=== PATIENT | female | born 1970 | race Caucasian/White ===

== ENCOUNTER 2021-11-22 10:47 | Emergency (ER) | payer MEDICARE, MEDICAID, SELFPAY ==
[2021-11-22 10:55] VITALS: BP 113/78; PULSE 114; RESP 20; TEMP 36; O2SAT 95; BMI 30.9
--- NOTE | 2021-11-22 11:22 | ED.GENADULT ---
HPI - General Adult General Time Seen by Provider: 11:23 Date Seen: 11/22/21 Chief complaint: Shortness of Breath/Dyspnea Stated complaint: Body/headache, trouble breathing Time Seen by Provider: 11/22/21 11:11 Source: patient Mode of arrival: wheelchair Limitations: no limitations History of Present Illness HPI narrative: Patient is a 51 year white female who lives at [facility], she has bipolar disorder and recently started respirdol all for her bipolar every other week injection. Staff reports since she started this she has felt more somnolent. At this time Dolores really has no other complaints she is not short of breath she, she denies chest pain, she denies any abdominal pain or leg or back pain. They deny falls or injuries. She presents with a staff person from [facility]. Apparently her Risperdal injection has been increased recently. Initial triage note says dyspnea and shortness of breath, but the patient denies this. Related Data Home Medications Medication Instructions Recorded Confirmed acetaminophen 500 mg tablet mg 11/22/21 aspirin 81 mg tablet,delayed mg 11/22/21 release atorvastatin 20 mg tablet mg 11/22/21 cetirizine 10 mg tablet mg 11/22/21 clonazepam 0.5 mg tablet mg 11/22/21 clonazepam 1 mg tablet mg 11/22/21 fluoxetine 20 mg capsule mg 11/22/21 gabapentin 100 mg capsule mg 11/22/21 gemfibrozil 600 mg tablet mg 11/22/21 ibuprofen 400 mg tablet mg 11/22/21 insulin aspart U-100 100 unit/mL subcut 11/22/21 (3 mL) subcutaneous pen (Novolog Flexpen U-100 Insulin aspart) insulin detemir U-100 100 unit/mL unit subcut 11/22/21 (3 mL) subcutaneous pen (Levemir FlexTouch U-100 Insulin) levothyroxine 88 mcg tablet mcg 11/22/21 lithium carbonate 450 mg mg PO 11/22/21 tablet,extended release metformin 1,000 mg tablet mg 11/22/21 risperidone microspheres 50 mg/2 mg IM 11/22/21 mL intramuscular susp,ext release (Risperdal Consta) sumatriptan succinate 50 mg tablet mg PO 11/22/21 valacyclovir 1 gram tablet mg 11/22/21 Allergies Allergy/AdvReac Type Severity Reaction Status Date / Time celery Allergy Severe Anaphylaxis Verified 11/22/21 11:05 erythromycin base Allergy Unknown Verified 11/22/21 11:05 hydromorphone [From Dilaudid] Allergy Unknown Verified 11/22/21 11:05 Macrolide Antibiotics Allergy Unknown Verified 11/22/21 11:05 nifedipine Allergy Unknown Verified 11/22/21 11:05 turkey Allergy Unknown Verified 11/22/21 11:05 Review of Systems Status of ROS: Reports: 10 or more systems reviewed and unremarkable except as noted in History and below [facility] Social History Smoking Status: Current every day smoker What tobacco products do you use: cigarettes Do you use any of these nicotine containing products: None Second hand tobacco smoke exposure: Yes How often do you have a drink containing alcohol: 2-3 times a week AUDIT-C Alcohol total score: 3 Non-prescribed substance use: denies use Exam Narrative: Exam Narrative: Objective: Vital signs unremarkable, O2 sat excellent Patient is somewhat sound somnolent but is able to sit up cooperate talks in even and nonlabored sentences, is alert orient x3 Neck is supple Chest is clear no rales or wheezing Heart rhythm rate rhythm without murmur Abdomen benign soft nontender no hepatomegaly Extremities are no edema neurologic nonfocal Peripheral perfusion is good Skin is warm and dry Const: Vital Signs, click to edit/add: Vital Signs - 24 hr 11/22/21 10:55 11/22/21 12:29 Temperature 96.8 F L 97.8 F Pulse Rate [Left P ulse Oximeter] 114 H 97 Respiratory Rate 20 15 Blood Pressure [Le ft Upper Arm] 113/78 91/66 Pulse Oximetry 95 92 Oxygen Delivery Me thod Room Air Room Air Course Vital Signs Vital signs: Initial Vital Signs Temperature 96.8 F L 11/22/21 10:55 Temperature Source Temporal Artery Scan 11/22/21 10:55 Pulse Rate 114 H 11/22/21 10:55 Pulse Rhythm 11/22/21 10:55 Respiratory Rate 20 11/22/21 10:55 Blood Pressure 113/78 11/22/21 10:55 Blood Pressure Mean 89 11/22/21 10:55 Blood Pressure Position Sitting 11/22/21 10:55 Pulse Oximetry 95 11/22/21 10:55 Oxygen Delivery Method 11/22/21 10:55 Vital Signs Temperature 96.8 F L 11/22/21 10:55 Pulse Rate 114 H 11/22/21 10:55 Respiratory Rate 20 11/22/21 10:55 Blood Pressure 113/78 11/22/21 10:55 Pulse Oximetry 95 11/22/21 10:55 Oxygen Delivery Method 11/22/21 10:55 Temperature 97.8 F 11/22/21 12:29 Pulse Rate 97 11/22/21 12:29 Respiratory Rate 15 11/22/21 12:29 Blood Pressure 91/66 11/22/21 12:29 Pulse Oximetry 92 11/22/21 12:29 Oxygen Delivery Method 11/22/21 12:29 Medical Decision Making MDM Narrative Medical decision making narrative: Patient has had an increased dose of her Risperdal, and she seems to be more somnolent since then. At this point I think we could hold the Risperdal, discussed with her primary care or psychiatrist, will check an EKG, troponin, electrolytes, CBC to make sure there is no metabolic abnormality occurring, she denies urinary symptoms, denies cough. Will also check a COVID test. Addendum: The patient's labs look fairly reassuring other than her creatinine is now elevated 2.6. It was normal last time was checked. I suspect she is mildly dehydrated, will give her a L of fluid, check urinalysis and a CRP. If this is normal in terms urinalysis thank you can let her go home with careful follow-up within the next couple of days to repeat her lab, push p.o. fluids, stop the Risperdal. Also I would hold her metformin while her creatinine is elevated. Continue to monitor blood sugars. Update Primary Care with a blood sugar update and repeat creatinine in 48 hours. I suspect the patient's creatinine is slightly elevated due to dehydration from her sedation from the Risperdal, but needs to push oral fluids hold the Risperdal and recheck creatinine in 48 hours Lab Data Labs: Lab Results 11/22/21 11/22/21 11/22/21 Range/Units 11:33 11:50 11:50 WBC 10.22 (4.50-11.00) K/uL RBC 3.19 L (4.00-5.20) m/uL Hgb 9.8 L (12.0-16.0) gm/dL Hct 29.5 L (33.0-51.0) % MCV 93 (80-100) fL MCH 31 (26-34) pg MCHC 33 (32-36) gm/dL RDW Coeff of [place] 13.2 (11.5-15.5) % Plt Count 193 (140-440) K/uL Neut % (Auto) 82.3 H (42.0-72.0) % Lymph % (Auto) 7.8 L (20-44) % [place] % (Auto) 8.5 (0.0-11.0) % Eos % (Auto) 0.5 (0.0-7.0) % Baso % (Auto) 0.2 (0.0-3.0) % Neut # (Auto) 8.40 H (1.7-7.0) K/uL Lymph # (Auto) 0.80 L (0.90-2.90) K/uL [place] # (Auto) 0.90 (0.00-0.90) K/UL Eos # (Auto) 0.05 (0.00-0.50) K/uL Baso # (Auto) 0.02 (0.00-0.30) K/uL Abs Immat Gran (auto) 0.07 (0.00-0.30) K/uL Sodium 134 L (135-149) mmol/L Potassium 4.2 (3.6-5.1) mmol/L Chloride 98 (96-114) mmol/L Carbon Dioxide 18 L (20-32) mmol/L BUN 42 H (7-30) mg/dL Creatinine 2.6 H (0.5-1.5) mg/dL Estimated Creat Clear 21.86 Estimated GFR 22 ml/min Glucose 168 H (60-115) mg/dL Lactate (0.5-1.9) mmol/L Calcium 8.9 (8.4-10.6) mg/dL Total Bilirubin 0.9 (0.1-1.5) mg/dL Direct Bilirubin 0.9 H (0.0-0.5) mg/dL AST 36 H (12-35) U/L ALT 23 (4-35) U/L Alkaline Phosphatase 110 (40-150) U/L C-Reactive Protein 51.0 H (0.5-1.0) mg/dL NT-Pro-B Natriuret Pep 401 H (0-125) PG/mL Total Protein 7.4 (6.0-8.3) g/dL Albumin 3.9 (3.3-5.0) g/dL Amylase 53 (18-89) U/L Urine Color (Yellow) Urine Appearance (Clear) Urine pH (5.0-8.5) Ur Specific [place] (1.000-1.030) Urine Protein (Negative) Urine Glucose (UA) (Negative) Urine Ketones (Negative) Urine Blood (Negative) Urine Nitrite (Negative) Urine Bilirubin (Negative) Urine Urobilinogen (0.2-1.0) Ur Leukocyte Esterase (Negative) Urine RBC (0-2) Urine WBC (0-5) Ur Squamous Epith Cells (None-Few) Amorphous Sediment (None) Urine Bacteria (None) Ethyl Alcohol < 0.01 L (0.01-0.03) % SARS-CoV-2 (PCR) Negative SARS-CoV-2 (Negative) POC Troponin I (0.01-0.04) ng/ml 11/22/21 11/22/21 11/22/21 Range/Units 11:50 11:56 14:19 WBC (4.50-11.00) K/uL RBC (4.00-5.20) m/uL Hgb (12.0-16.0) gm/dL Hct (33.0-51.0) % MCV (80-100) fL MCH (26-34) pg MCHC (32-36) gm/dL RDW Coeff of Norris (11.5-15.5) % Plt Count (140-440) K/uL Neut % (Auto) (42.0-72.0) % Lymph % (Auto) (20-44) % [place] % (Auto) (0.0-11.0) % Eos % (Auto) (0.0-7.0) % Baso % (Auto) (0.0-3.0) % Neut # (Auto) (1.7-7.0) K/uL Lymph # (Auto) (0.90-2.90) K/uL [place] # (Auto) (0.00-0.90) K/UL Eos # (Auto) (0.00-0.50) K/uL Baso # (Auto) (0.00-0.30) K/uL Abs Immat Gran (auto) (0.00-0.30) K/uL Sodium (135-149) mmol/L Potassium (3.6-5.1) mmol/L Chloride (96-114) mmol/L Carbon Dioxide (20-32) mmol/L BUN (7-30) mg/dL Creatinine (0.5-1.5) mg/dL Estimated Creat Clear Estimated GFR ml/min Glucose (60-115) mg/dL Lactate 2.6 H (0.5-1.9) mmol/L Calcium (8.4-10.6) mg/dL Total Bilirubin (0.1-1.5) mg/dL Direct Bilirubin (0.0-0.5) mg/dL AST (12-35) U/L ALT (4-35) U/L Alkaline Phosphatase (40-150) U/L C-Reactive Protein (0.5-1.0) mg/dL NT-Pro-B Natriuret Pep (0-125) PG/mL Total Protein (6.0-8.3) g/dL Albumin (3.3-5.0) g/dL Amylase (18-89) U/L Urine Color Yellow (Yellow) Urine Appearance Cloudy A (Clear) Urine pH 5.5 (5.0-8.5) Ur Specific [place] 1.020 (1.000-1.030) Urine Protein 3+ A (Negative) Urine Glucose (UA) Negative (Negative) Urine Ketones Negative (Negative) Urine Blood 3+ A (Negative) Urine Nitrite Positive A (Negative) Urine Bilirubin Negative (Negative) Urine Urobilinogen 0.2 (0.2-1.0) Ur Leukocyte Esterase 3+ A (Negative) Urine RBC 10-25 A (0-2) Urine WBC >100 A (0-5) Ur Squamous Epith Cells Few (None-Few) Amorphous Sediment Moderate A (None) Urine Bacteria Many A (None) Ethyl Alcohol (0.01-0.03) % SARS-CoV-2 (PCR) (Negative) POC Troponin I 0.01 (0.01-0.04) ng/ml Discharge Plan Discharge Clinical Impression: Medication reaction, Acute dehydration Patient Disposition: Home w/ Parent or Adult Condition: Stable Additional Instructions: Hold Risperdal at this time, update primary care and psychiatry in the next couple of days, light activity. Return as needed. Stop metformin for now, continue blood sugar checks, update Primary in 24-48 hours. Creatinine was slightly elevated and should hold metformin for now. I would recommend a follow-up creatinine in 2 days. Will call if any abnormality in the urinalysis, and recommend good fluid hydration. I suspect she has been slightly dehydrated causing her creatinine the elevate based on her Risperdal use and sedation. Activity Level: Light activity Discharge Diet: Diabetic and Heart Healthy (2 gm sodium, low fat) Prescriptions: No Action atorvastatin 20 mg tablet cetirizine 10 mg tablet valacyclovir 1 gram tablet clonazepam 0.5 mg tablet clonazepam 1 mg tablet sumatriptan succinate 50 mg tablet PO aspirin 81 mg tablet,delayed release (DR/EC) acetaminophen 500 mg tablet lithium carbonate 450 mg tablet extended release PO levothyroxine 88 mcg tablet gemfibrozil 600 mg tablet metformin 1,000 mg tablet ibuprofen 400 mg tablet gabapentin 100 mg capsule fluoxetine 20 mg capsule insulin aspart U-100 [Novolog Flexpen U-100 Insulin] 100 unit/mL (3 mL) insulin pen SUBCUT Risperdal Consta 50 mg/2 mL suspension,extended rel recon IM Levemir FlexTouch U-100 Insuln 100 unit/mL (3 mL) insulin pen SUBCUT Follow Up/Referrals: Andrea Abbott MD [Primary Care Provider] - Stand Alone Forms: [facility] Info Instructions
[2021-11-22 11:57] LABS: Basophils Absolute Auto 0.02 K/uL (0.00-0.30); Basophils Percent Auto 0.2 % (0.0-3.0); Eosinophils Absolute Auto 0.05 K/uL (0.00-0.50); Eosinophils Percent Auto 0.5 % (0.0-7.0); Hematocrit 29.5 % (33.0-51.0); Hemoglobin* 9.8 gm/dL (12.0-16.0); Immature Granulocytes Abs Auto 0.07 K/uL (0.00-0.30); Lymphocytes Percent Auto 7.8 % (20-44); Mean Corpuscular HGB Conc 33 gm/dL (32-36); Mean Corpuscular Hemoglobin 31 pg (26-34); Mean Corpuscular Volume 93 fL (80-100); Monocytes Percent Auto 8.5 % (0.0-11.0); Neutrophils Percent Auto 82.3 % (42.0-72.0); Platelet Count* 193 K/uL (140-440); RDW Coefficient of Variation % 13.2 % (11.5-15.5); Red Blood Count 3.19 m/uL (4.00-5.20); White Blood Count* 10.22 K/uL (4.50-11.00)
[2021-11-22 11:58] LABS: Lactate* 2.6 mmol/L (0.5-1.9)
[2021-11-22 11:59] LABS: Slide Review Reflex No
[2021-11-22 12:14] LABS: Troponin, Point-of-Care* 0.01 ng/ml (0.01-0.04)
[2021-11-22 12:18] LABS: Albumin* 3.9 g/dL (3.3-5.0); Chloride* 98 mmol/L (96-114); Potassium* 4.2 mmol/L (3.6-5.1); Sodium* 134 mmol/L (135-149)
[2021-11-22 12:20] LABS: Amylase* 53 U/L (18-89); Creatinine* 2.6 mg/dL (0.5-1.5); Est. Creatinine Clearance* 21.86; Estimated Glomerular Filt Rate 22 ml/min
[2021-11-22 12:21] LABS: Alkaline Phosphatase* 110 U/L (40-150); Aspartate Amino Transferase* 36 U/L (12-35); Bilirubin Direct* 0.9 mg/dL (0.0-0.5); Bilirubin Total* 0.9 mg/dL (0.1-1.5); Blood Urea Nitrogen* 42 mg/dL (7-30); Carbon Dioxide* 18 mmol/L (20-32); Total Protein* 7.4 g/dL (6.0-8.3)
[2021-11-22 12:22] LABS: Alanine Aminotransferase* 23 U/L (4-35); Calcium* 8.9 mg/dL (8.4-10.6); Glucose* 168 mg/dL (60-115)
[2021-11-22 12:24] LABS: Ethanol* < 0.01 % (0.01-0.03)
[2021-11-22 12:27] LABS: SARS PCR* Negative SARS-CoV-2 (Negative)
[2021-11-22 12:29] VITALS: BP 91/66; PULSE 97; RESP 15; TEMP 36.6; O2SAT 92
[2021-11-22 12:30] LABS: NT Pro B Type NatriureticPept* 401 PG/mL (0-125)
[2021-11-22] MEDS: 0.9 % SODIUM CHLORIDE 1000 ml 1,000 ML 6000 ML IV (13:29)
[2021-11-22 14:29] LABS: Appearance Urine Cloudy (Clear); Bilirubin Urine Negative (Negative); Blood Urine 3+ (Negative); Color Urine Yellow (Yellow); Glucose Urine Negative (Negative); Ketones Urine Negative (Negative); Leukocyte Esterase Urine 3+ (Negative); Nitrite Urine Positive (Negative); Protein Urine 3+ (Negative); Urobilinogen Urine 0.2 (0.2-1.0); pH Urine 5.5 (5.0-8.5)
[2021-11-22 14:46] LABS: Amorphous Sediment Urine Moderate; Bacteria Urine Many; Squamous Epithelial Cell Urine Few (None-Few); WBC Urine >100 (0-5)
== END 2021-11-22 14:41 | disposition home or self-care (01) ==
PROVIDERS: Emergency Provider Family Medicine; PCP Family Medicine
DX: Z53.29 Procedure and treatment not carried out because of patient's decision for other reasons (principal)
CPT/HCPCS: 99281; 36415; 80048; 80076; 81001; 82077; 82150; 83605; 83880; 84484; 85025; 86140; 87086; 87186; 87635; 93005; 99285; J7030

== ENCOUNTER 2021-11-24 10:33 | Outpatient (CLI) | payer MEDICARE, MEDICAID, SELFPAY | END 2021-11-24 10:34 | disposition home or self-care (01) | LOC: AMB 12-07 15:30 | PROVIDERS: PCP Family Medicine; Visit Provider Family Medicine | DX: R41.82 Altered mental status, unspecified (principal); R53.1 Weakness | CPT/HCPCS: A0425; A0427 ==

== ENCOUNTER 2021-11-24 10:52 | Inpatient (IN) | payer MEDICARE, MEDICAID, SELFPAY ==
[2021-11-24] VITALS (12 sets, daily range): BP systolic 93–126; BP diastolic 65–91; PULSE 92–120; RESP 20; TEMP 36.4–39.4; O2SAT 91–96; BMI 30.9; BMI 27.6
--- NOTE | 2021-11-24 11:00 | CRLHL7_ITS ---
For Patients: As a result of the Century Cures Act, medical imaging exams and procedure reports are released immediately into your electronic medical record. You may view this report before your referring provider. If you have questions, please contact your health care provider. INDICATION: Change in mental status TECHNIQUE: CT head without contrast. COMPARISON: 07/09/2014 FINDINGS: CSF spaces: Within normal limits for age. Brain parenchyma: The jarrett-white differentiation is normal. No sign of mass, hemorrhage, or midline shift. Skull base and calvarium: The visualized paranasal sinuses and mastoid air cells demonstrate no acute or significant findings. The visualized orbits are grossly unremarkable. No skull fractures. IMPRESSION: Unremarkable noncontrast head CT. Dictated by Chester Johnson MD @ 11/24/2021 11:24:30 AM Please note that all CT scans at this facility use dose modulation, iterative reconstruction, and/or weight-based dosing when appropriate to reduce radiation dose to as low as reasonably achievable. Dictated by: Chester Johnson MD @ 11/24/2021 11:24:34 (Electronically Signed)
[2021-11-24 11:20] LABS: HCO3 VBG 20 mmol/L (21-28); Lactate* 1.1 mmol/L (0.5-1.9); PCO2 VBG 38 mmHG (40-50); PO2 VBG 49.4 mmHG (25-47); pH VBG 7.335 (7.32-7.43)
--- NOTE | 2021-11-24 11:28 | ED.AMS ---
HPI - Altered Mental Status General Date Seen: 11/24/21 Chief Complaint: Altered Mental Status Stated Complaint: Altered mental status Time Seen by Provider: 11/24/21 11:08 Source: patient and RN notes reviewed Mode of arrival: ambulatory Limitations: no limitations History of Present Illness HPI narrative: Patient is a 51-year-old female brought in from [facility] by EMS for difficulty arousing, somnolence. Patient was in on November 22, records reviewed. They thought she was having a side effect to her risperidone. She last had this injected on Saturday. She was complaining of headaches body aches some slurred speech when she was in on the . Her Risperdal and metformin were reportedly stopped, was ordered to have a repeat creatinine in 2 days. Her urine culture was on her call back list and unfortunately patient did come back in further altered per staff. She was seen on arrival in stable 1. Her sugar was 205 per EMS, she has a known diabetic. Her urine culture from the grew greater than 100,000 Klebsiella pneumoniae, only resistant to ampicillin, all other antibiotics show sensitivity. She is able to talk to me some. She states she hurts everywhere, her left shoulder her chest. She cannot give me further delineation of the type of pain. She is definitely somnolent but arousable. Her creatinine was 2.6, lactate elevated when she was in her C reactive protein was in the 50s. Was recommended that the risperidone metformin be stopping the creatinine be rechecked in 2 days. We will obviously be doing that today. MD complaint: altered mental status Related Data Home Medications Medication Instructions Recorded Confirmed acetaminophen 500 mg tablet 1,000 mg PO BID 11/22/21 11/24/21 aspirin 81 mg tablet,delayed 81 mg PO DAILY 11/22/21 11/24/21 release atorvastatin 20 mg tablet 20 mg PO HS 11/22/21 11/24/21 cetirizine 10 mg tablet 10 mg PO DAILY 11/22/21 11/24/21 clonazepam 1 mg tablet 1 mg PO HS 11/22/21 11/24/21 fluoxetine 20 mg capsule 20 mg PO DAILY 11/22/21 11/24/21 gabapentin 100 mg capsule 100 mg PO TID 11/22/21 11/24/21 gemfibrozil 600 mg tablet 600 mg PO BIDWM 11/22/21 11/24/21 ibuprofen 400 mg tablet 400 mg PO TIDWM 11/22/21 11/24/21 insulin aspart U-100 100 unit/mL 10 - 35 unit subcut TID 11/22/21 11/24/21 (3 mL) subcutaneous pen (Novolog Flexpen U-100 Insulin aspart) insulin detemir U-100 100 unit/mL 20 - 60 unit subcut HS 11/22/21 11/24/21 (3 mL) subcutaneous pen (Levemir FlexTouch U-100 Insulin) levothyroxine 88 mcg tablet 88 mcg PO DAILY 11/22/21 11/24/21 lithium carbonate 450 mg 450 mg PO DAILY@12 11/22/21 11/24/21 tablet,extended release sumatriptan succinate 50 mg tablet 50 mg PO Q2H PRN 11/22/21 11/24/21 valacyclovir 1 gram tablet 1,000 mg PO DAILY PRN 11/22/21 11/24/21 albuterol sulfate 90 mcg/actuation 2 inh inhalation QID PRN 11/24/21 11/24/21 aerosol inhaler (Ventolin HFA) aluminum-mag hydroxide-simethicone 5 - 10 ml PO BID PRN 11/24/21 11/24/21 200 mg-200 mg-20 mg/5 mL oral susp (Advanced Antacid-[place]as) ammonium lactate 12 % topical cream 1 applic topical BID PRN 11/24/21 11/24/21 benzonatate 100 mg capsule 100 mg PO TID PRN 11/24/21 11/24/21 calcium carbonate 200 mg calcium 400 mg PO QID PRN 11/24/21 11/24/21 (500 mg) chewable tablet (Antacid (calcium carbonate)) clotrimazole 1 % topical cream 1 applic topical BID PRN 11/24/21 11/24/21 (Antifungal Ringworm) cyanocobalamin (vitamin B-12) 1,000 mcg PO DAILY 11/24/21 11/24/21 1,000 mcg tablet (Vitamin B-12) cyclobenzaprine 5 mg tablet 5 mg PO HS PRN 11/24/21 11/24/21 diphenhydramine HCl 25 mg capsule 25 mg PO Q4H PRN 11/24/21 11/24/21 (Aler-Cap) guaifenesin 100 mg/5 mL oral 100 mg PO Q4H PRN 11/24/21 11/24/21 liquid (Chest Congestion Relief) ipratropium 0.5 mg-albuterol 3 mg 3 ml inhalation Q6H PRN 11/24/21 11/24/21 (2.5 mg base)/3 mL nebulization soln loperamide 2 mg capsule 2 mg PO Q6H PRN 11/24/21 11/24/21 (Anti-Diarrheal (loperamide)) lorazepam 0.5 mg tablet 0.5 mg PO DAILY PRN 11/24/21 11/24/21 magnesium hydroxide 400 mg/5 mL 15 - 30 ml PO HS PRN 11/24/21 11/24/21 oral suspension (Milk of Magnesia) menthol 5.8 mg lozenges (Cough 5.8 mg mucous membrane Q1-2H PRN 11/24/21 11/24/21 Drops) ondansetron 4 mg oral soluble film 4 mg PO Q8H PRN 11/24/21 11/24/21 Allergies Allergy/AdvReac Type Severity Reaction Status Date / Time celery Allergy Severe Anaphylaxis Verified 11/22/21 11:05 erythromycin base Allergy Unknown Verified 11/22/21 11:05 hydromorphone [From Dilaudid] Allergy Unknown Verified 11/22/21 11:05 Macrolide Antibiotics Allergy Unknown Verified 11/22/21 11:05 nifedipine Allergy Unknown Verified 11/22/21 11:05 turkey Allergy Unknown Verified 11/22/21 11:05 Review of Systems Status of ROS: Reports: unobtainable due to medical condition [facility] Medical History (Updated 11/24/21 @ 14:23 by Kan Gaona MD) Acute kidney injury Anxiety Asbestosis Asthma Cholelithiasis Elevated liver transaminase level Hx of fracture of humerus Hyperlipidemia Hypertension Hypothyroidism Insomnia Migraine Obesity Pleural plaque due to asbestos exposure Schizoaffective disorder Seasonal allergies Type 2 diabetes mellitus Surgical History (Updated 11/24/21 @ 13:38 by Kan Gaona MD) H/O hysterectomy with oophorectomy Social History Smoking Status: Current every day smoker What tobacco products do you use: cigarettes Do you use any of these nicotine containing products: None Second hand tobacco smoke exposure: Yes How often do you have a drink containing alcohol: 2-3 times a week AUDIT-C Alcohol total score: 3 Non-prescribed substance use: denies use service: No Exam Const: Vital Signs, click to edit/add: Vital Signs - 24 hr 11/24/21 10:58 11/24/21 11:30 11/24/21 12:00 Pulse Rate [Left P ulse Oximeter] 92 92 92 Blood Pressure [Le ft Upper Arm] 111/76 111/76 110/77 Pulse Oximetry 95 95 95 Oxygen Delivery Me thod Room Air Room Air Room Air 11/24/21 12:30 11/24/21 13:00 11/24/21 13:30 Pulse Rate [Left P ulse Oximeter] 92 92 92 Blood Pressure [Le ft Upper Arm] 108/70 93/66 106/82 Pulse Oximetry 95 95 95 Oxygen Delivery Me thod Room Air Room Air Room Air Common normals: no apparent distress Exam limitations: altered mental status General appearance: cooperative (When she is awake) Nutritional appearance: overweight Other: Patient is comfortable appearing, falls asleep very easily but is arousable with touch or voice. She will readily falls back to sleep very quickly. HENMT: Common normals: normocephalic, head/scalp atraumatic, hearing grossly normal bilaterally, external ears normal, external nose normal and nasal mucous membranes and turbinates normal Head and scalp: normocephalic and atraumatic Nose: external nose normal and nasal mucous membranes and turbinates normal External ear: external ears normal Other: Oral mucosa is exceedingly dry as well as teeth. Note no visible lesions, no no trauma oropharynx noted. Eye: Common normals: PERRL, EOMs intact bilaterally, conjunctivae normal and no scleral icterus Conjunctiva: conjunctiva(e) normal Pupil: PERRL Neck & C-Spine: Common normals: full ROM, no lymphadenopathy, supple, no meningeal signs, no JVD and thyroid normal Thyroid: thyroid normal Resp: Common normals: normal respiratory effort, no retractions, no use of accessory muscles and clear to auscultation bilaterally Auscultation: clear to auscultation bilaterally Cardio: Common normals: no JVD, regular rate, regular rhythm, S1 normal heart sound, S2 normal heart sound, no gallops, no clicks, no murmurs and no rub Rate: regular rate Rhythm: regular rhythm Heart sounds: S1 normal and S2 normal GI: Common normals: Normal to inspection, nondistended, normoactive bowel sounds present, soft to palpation, non-tender, no hepatosplenomegaly, no masses and no bruits Palpation: soft and no hepatosplenomegaly Extremity: Other: She is globally weak but follows commands. She does grasp my hands bilaterally but really is only about a 2/5 albeit symmetric. She can lift her legs off the bed, wiggles her toes, globally weak however. States she feels normal sensation. There is no lower extremity edema, no rashes or wounds noted on her extremities. Neuro: [place] Coma Scale: document GCS findings Damián coma scale eye opening: To sound (3) Damián coma scale verbal response: Confused (4) Damián coma scale motor response: Obey commands (6) [place] coma scale total score: 13 Common normals: CN's II-XII intact bilaterally, moves all extremities, no focal motor deficits and no sensory deficits noted Meningeal signs: no meningeal signs Speech: abnormal speech Details: slurred Course Course Hospital Course: EKG, cardiac monitoring, IV and pulse oximetry will be done. She is going to get a stat head CT as there is some report of falls at the facility. Her exam is nonfocal thus I do not think this is a stroke but certainly will rule out intracranial pathology. Will get full complement of labs including blood cultures. Once we have we obtain urine as well as blood cultures, will initiate Rocephin 1 g IV. I am going to give her a L of normal saline at this time as well until I await her labs. Given this presentation, I feel it necessary that we really should look at abdominal imaging to ensure no obstructive uropathy. Reevaluation(s) Reevaluation #1: Radiologist did call and discuss her CT scan and clinical condition with me. Have subsequently spoke with Dr. Gaona. He will still be assuming care. He does state he finds her to be clinically tender on the right side at this time. Time: 13:14 Consultations Consultation #1: Have spoken with Dr. Gaona. He agrees patient needs hospitalization. He is aware we are waiting the CT over read. He does accept the patient. Time: 12:48 Vital Signs Vital signs: Initial Vital Signs Pulse Rate 92 11/24/21 10:58 Pulse Rhythm 11/24/21 10:58 Pulse Strength 3+ Normal 11/24/21 10:58 Blood Pressure 111/76 11/24/21 10:58 Blood Pressure Mean 87 11/24/21 10:58 Pulse Oximetry 95 11/24/21 10:58 Oxygen Delivery Method 11/24/21 10:58 Vital Signs Pulse Rate 92 11/24/21 10:58 Blood Pressure 111/76 11/24/21 10:58 Pulse Oximetry 95 11/24/21 10:58 Oxygen Delivery Method 11/24/21 10:58 Temperature 97.5 F L 11/24/21 14:00 Pulse Rate 92 11/24/21 13:30 Respiratory Rate 20 11/24/21 14:00 Blood Pressure 122/91 H 11/24/21 14:00 Pulse Oximetry 94 11/24/21 14:00 Oxygen Delivery Method 11/24/21 14:00 MDM - Altered Mental Status Lab Data Attestation: I reviewed the patient's lab results. Labs: Lab Results 11/24/21 11/24/21 11/24/21 Range/Units 11:00 11:00 11:00 WBC (4.50-11.00) K/uL RBC (4.00-5.20) m/uL Hgb (12.0-16.0) gm/dL Hct (33.0-51.0) % MCV (80-100) fL MCH (26-34) pg MCHC (32-36) gm/dL RDW Coeff of Norris (11.5-15.5) % Plt Count (140-440) K/uL Neut % (Auto) (42.0-72.0) % Lymph % (Auto) (20-44) % [place] % (Auto) (0.0-11.0) % Eos % (Auto) (0.0-7.0) % Baso % (Auto) (0.0-3.0) % Neut # (Auto) (1.7-7.0) K/uL Lymph # (Auto) (0.90-2.90) K/uL [place] # (Auto) (0.00-0.90) K/UL Eos # (Auto) (0.00-0.50) K/uL Baso # (Auto) (0.00-0.30) K/uL Abs Immat Gran (auto) (0.00-0.30) K/uL VBG pH 7.335 (7.32-7.43) VBG pCO2 38 L (40-50) mmHG VBG pO2 49.4 H (25-47) mmHG VBG HCO3 20 L (21-28) mmol/L Sodium 137 (135-149) mmol/L Potassium 4.2 (3.6-5.1) mmol/L Chloride 101 (96-114) mmol/L Carbon Dioxide 19 L (20-32) mmol/L BUN 55 H (7-30) mg/dL Creatinine 2.7 H (0.5-1.5) mg/dL Estimated Creat Clear 21.05 Estimated GFR 21 ml/min Glucose 190 H (60-115) mg/dL Lactate 1.1 (0.5-1.9) mmol/L Calcium 9.6 (8.4-10.6) mg/dL Total Bilirubin 1.0 (0.1-1.5) mg/dL AST 45 H (12-35) U/L ALT 22 (4-35) U/L Alkaline Phosphatase 164 H (40-150) U/L C-Reactive Protein > 27.0 H (0.5-1.0) mg/dL NT-Pro-B Natriuret Pep 637 H (0-125) PG/mL Total Protein 7.8 (6.0-8.3) g/dL Albumin 3.8 (3.3-5.0) g/dL Procalcitonin 6.45 H (<0.50) ng/mL TSH 0.525 (0.270-4.200) uIU/mL Urine Color (Yellow) Urine Appearance (Clear) Urine pH (5.0-8.5) Ur Specific [place] (1.000-1.030) Urine Protein (Negative) Urine Glucose (UA) (Negative) Urine Ketones (Negative) Urine Blood (Negative) Urine Nitrite (Negative) Urine Bilirubin (Negative) Urine Urobilinogen (0.2-1.0) Ur Leukocyte Esterase (Negative) Urine RBC (0-2) Urine WBC (0-5) Ur Squamous Epith Cells (None-Few) Urine Bacteria (None) Urine Opiates Screen (Negative) Ur Oxycodone Screen (Negative) Urine Methadone Screen (Negative) Ur Propoxyphene Screen (Negative) Ur Barbiturates Screen (Negative) U Tricyclic Antidepress (Negative) Ur Phencyclidine Scrn (Negative) Ur Amphetamines Screen (Negative) U Methamphetamines Scrn (Negative) U Benzodiazepines Scrn (Negative) Urine Cocaine Screen (Negative) U Marijuana (THC) Screen (Negative) Ur Drug Screen Comment Ethyl Alcohol < 0.01 L (0.01-0.03) % SARS-CoV-2 (PCR) (Negative) POC Troponin I (0.01-0.04) ng/ml 11/24/21 11/24/21 11/24/21 Range/Units 11:18 11:18 11:35 WBC 8.90 (4.50-11.00) K/uL RBC 3.82 L (4.00-5.20) m/uL Hgb 11.5 L (12.0-16.0) gm/dL Hct 35.0 (33.0-51.0) % MCV 92 (80-100) fL MCH 30 (26-34) pg MCHC 33 (32-36) gm/dL RDW Coeff of Norris 13.7 (11.5-15.5) % Plt Count 243 (140-440) K/uL Neut % (Auto) 78.5 H (42.0-72.0) % Lymph % (Auto) 7.3 L (20-44) % [place] % (Auto) 7.8 (0.0-11.0) % Eos % (Auto) 0.2 (0.0-7.0) % Baso % (Auto) 0.0 (0.0-3.0) % Neut # (Auto) 7.00 (1.7-7.0) K/uL Lymph # (Auto) 0.60 L (0.90-2.90) K/uL [place] # (Auto) 0.70 (0.00-0.90) K/UL Eos # (Auto) 0.02 (0.00-0.50) K/uL Baso # (Auto) 0.00 (0.00-0.30) K/uL Abs Immat Gran (auto) 0.55 H (0.00-0.30) K/uL VBG pH (7.32-7.43) VBG pCO2 (40-50) mmHG VBG pO2 (25-47) mmHG VBG HCO3 (21-28) mmol/L Sodium (135-149) mmol/L Potassium (3.6-5.1) mmol/L Chloride (96-114) mmol/L Carbon Dioxide (20-32) mmol/L BUN (7-30) mg/dL Creatinine (0.5-1.5) mg/dL Estimated Creat Clear Estimated GFR ml/min Glucose (60-115) mg/dL Lactate (0.5-1.9) mmol/L Calcium (8.4-10.6) mg/dL Total Bilirubin (0.1-1.5) mg/dL AST (12-35) U/L ALT (4-35) U/L Alkaline Phosphatase (40-150) U/L C-Reactive Protein (0.5-1.0) mg/dL NT-Pro-B Natriuret Pep (0-125) PG/mL Total Protein (6.0-8.3) g/dL Albumin (3.3-5.0) g/dL Procalcitonin (<0.50) ng/mL TSH (0.270-4.200) uIU/mL Urine Color Yellow (Yellow) Urine Appearance Cloudy A (Clear) Urine pH 5.5 (5.0-8.5) Ur Specific [place] 1.020 (1.000-1.030) Urine Protein 3+ A (Negative) Urine Glucose (UA) Negative (Negative) Urine Ketones Negative (Negative) Urine Blood 3+ A (Negative) Urine Nitrite Negative (Negative) Urine Bilirubin 1+ A (Negative) Urine Urobilinogen 0.2 (0.2-1.0) Ur Leukocyte Esterase 1+ A (Negative) Urine RBC >100 A (0-2) Urine WBC >100 A (0-5) Ur Squamous Epith Cells None (None-Few) Urine Bacteria Moderate A (None) Urine Opiates Screen (Negative) Ur Oxycodone Screen (Negative) Urine Methadone Screen (Negative) Ur Propoxyphene Screen (Negative) Ur Barbiturates Screen (Negative) U Tricyclic Antidepress (Negative) Ur Phencyclidine Scrn (Negative) Ur Amphetamines Screen (Negative) U Methamphetamines Scrn (Negative) U Benzodiazepines Scrn (Negative) Urine Cocaine Screen (Negative) U Marijuana (THC) Screen (Negative) Ur Drug Screen Comment Ethyl Alcohol (0.01-0.03) % SARS-CoV-2 (PCR) (Negative) POC Troponin I 0.01 (0.01-0.04) ng/ml 11/24/21 11/24/21 Range/Units 11:35 11:35 WBC (4.50-11.00) K/uL RBC (4.00-5.20) m/uL Hgb (12.0-16.0) gm/dL Hct (33.0-51.0) % MCV (80-100) fL MCH (26-34) pg MCHC (32-36) gm/dL RDW Coeff of Norris (11.5-15.5) % Plt Count (140-440) K/uL Neut % (Auto) (42.0-72.0) % Lymph % (Auto) (20-44) % [place] % (Auto) (0.0-11.0) % Eos % (Auto) (0.0-7.0) % Baso % (Auto) (0.0-3.0) % Neut # (Auto) (1.7-7.0) K/uL Lymph # (Auto) (0.90-2.90) K/uL [place] # (Auto) (0.00-0.90) K/UL Eos # (Auto) (0.00-0.50) K/uL Baso # (Auto) (0.00-0.30) K/uL Abs Immat Gran (auto) (0.00-0.30) K/uL VBG pH (7.32-7.43) VBG pCO2 (40-50) mmHG VBG pO2 (25-47) mmHG VBG HCO3 (21-28) mmol/L Sodium (135-149) mmol/L Potassium (3.6-5.1) mmol/L Chloride (96-114) mmol/L Carbon Dioxide (20-32) mmol/L BUN (7-30) mg/dL Creatinine (0.5-1.5) mg/dL Estimated Creat Clear Estimated GFR ml/min Glucose (60-115) mg/dL Lactate (0.5-1.9) mmol/L Calcium (8.4-10.6) mg/dL Total Bilirubin (0.1-1.5) mg/dL AST (12-35) U/L ALT (4-35) U/L Alkaline Phosphatase (40-150) U/L C-Reactive Protein (0.5-1.0) mg/dL NT-Pro-B Natriuret Pep (0-125) PG/mL Total Protein (6.0-8.3) g/dL Albumin (3.3-5.0) g/dL Procalcitonin (<0.50) ng/mL TSH (0.270-4.200) uIU/mL Urine Color (Yellow) Urine Appearance (Clear) Urine pH (5.0-8.5) Ur Specific [place] (1.000-1.030) Urine Protein (Negative) Urine Glucose (UA) (Negative) Urine Ketones (Negative) Urine Blood (Negative) Urine Nitrite (Negative) Urine Bilirubin (Negative) Urine Urobilinogen (0.2-1.0) Ur Leukocyte Esterase (Negative) Urine RBC (0-2) Urine WBC (0-5) Ur Squamous Epith Cells (None-Few) Urine Bacteria (None) Urine Opiates Screen Negative (Negative) Ur Oxycodone Screen Negative (Negative) Urine Methadone Screen Negative (Negative) Ur Propoxyphene Screen Negative (Negative) Ur Barbiturates Screen Negative (Negative) U Tricyclic Antidepress Negative (Negative) Ur Phencyclidine Scrn Negative (Negative) Ur Amphetamines Screen Negative (Negative) U Methamphetamines Scrn Negative (Negative) U Benzodiazepines Scrn Negative (Negative) Urine Cocaine Screen Negative (Negative) U Marijuana (THC) Screen Negative (Negative) Ur Drug Screen Comment See Note Ethyl Alcohol (0.01-0.03) % SARS-CoV-2 (PCR) Negative SARS-CoV-2 (Negative) POC Troponin I (0.01-0.04) ng/ml Imaging Data CT scan - head: Attestation: I have reviewed the pertinent imaging results. Radiologist's impression: Patient: WAYLON NELSON Facility:?[facility] Patient ID:?[id number] Site Patient ID:?[id number]. Site :?[id number] Study:?CT Head WITHOUT-11/24/2021 11:17:52 AM Ordering Physician:Maria Luisa Mcguire Final Report: INDICATION: Change in mental status TECHNIQUE: CT head without contrast. COMPARISON: 07/09/2014 FINDINGS: CSF spaces: Within normal limits for age. Brain parenchyma: The jarrett-white differentiation is normal. No sign of mass, hemorrhage, or midline shift. Skull base and calvarium: The visualized paranasal sinuses and mastoid air cells demonstrate no acute or significant findings. The visualized orbits are grossly unremarkable. No skull fractures. IMPRESSION: Unremarkable noncontrast head CT. Dictated by Chester Johnson MD @ 11/24/2021 11:24:30 AM Please note that all CT scans at this facility use dose modulation, iterative reconstruction, and/or weight-based dosing when appropriate to reduce radiation dose to as low as reasonably achievable. Dictated by: Chester Johnson MD @ 11/24/2021 11:24:34 (Electronic Signature) CT scan - abdomen: Attestation: I have reviewed the pertinent imaging results. Radiologist's impression: Patient: WAYLON NELSON Facility:?[facility] Patient ID:?[id number] Site Patient ID:?[id number]. Site :?[id number] Study:?CT Abdomen/Pelvis WITHOUT-11/24/2021 11:58:48 AM Ordering Physician:?Felicia Mcguire Final Report: INDICATION: Abnormal urinalysis. Clinical signs of infection. COMPARISON: A similar study of December 17, 2013 TECHNIQUE: CT examination of the abdomen and pelvis was performed without intravenous contrast. Thin section axial images were obtained from the lung bases through the pubic symphysis. Oral contrast was not administered. Please note that all CT scans at this facility use dose modulation, iterative reconstruction, and/or weight-based dosing when appropriate to reduce radiation dose to as low as reasonably achievable. FINDINGS: LUNG BASES: Basilar atelectasis. Heart size normal at the lung bases. LIVER/BILIARY SYSTEM:Enlarged fatty infiltrated liver. There is cholelithiasis which was present previously. The gallbladder is significantly distended but there is no wall thickening, pericholecystic fluid or biliary ductal dilatation. ADRENALS: Normal non-contrast appearance KIDNEYS, URETERS and BLADDER:The left kidney presents within normal noncontrast appearance. The right kidney is enlarged and edematous with perinephric stranding but no hydronephrosis or hydroureter. There is a mixed density mass with a fluid fluid level in the midpole of the right kidney measuring 3.2 centimeters. While this could be neoplastic, I suspect that it is an intrarenal abscess given the signs and symptoms of significant UTI. Careful clinical and imaging follow-up is recommended to ensure that this resolves. The bladder appears normal. SPLEEN:Mildly enlarged but no focal mass and unchanged PANCREAS: Normal non-contrast appearance. RETROPERITONEUM and MESENTERY: There is no mass, adenopathy or aortic aneurysm. GASTROINTESTINAL SYSTEM: There is no evidence of diverticulitis, colitis, mechanical obstruction, or appendicitis. The small bowel as visualized appears normal.Scattered diverticulosis. Mild fecal retention without mechanical obstruction PELVIS: No mass, adenopathy or free fluid. OSSEOUS STRUCTURES and ABDOMINAL WALL: There is an age-appropriate appearance of the osseous structures.No significant abdominal wall defect. OTHER: No free fluid or free air. I discussed this case with Dr. Whitehead at 12:55 p.m. on November 24, 2021 IMPRESSION: 1. Abnormal right kidney. The right kidney is enlarged and edematous with perinephric stranding but no evidence of obstructive uropathy. There is a mass in the midpole on the right measuring 3.2 centimeters containing a fluid fluid level. While this could be neoplastic, it is probably an intrarenal abscess given the clinical sizes symptoms of a significant UTI. Careful clinical and imaging follow-up recommended to assess for resolution 2. Distended gallbladder and cholelithiasis but no wall thickening, pericholecystic fluid or surrounding inflammatory change 3. Other nonacute appearing findings as above Please note that all CT scans at this facility use dose modulation, iterative reconstruction, and/or weight-based dosing when appropriate to reduce radiation dose to as low as reasonably achievable. Dictated by Matt Amato MD @ 11/24/2021 12:58:32 PM (Electronic Signature) Chest x-ray: Attestation: I have reviewed the pertinent imaging results. Radiologist's impression: Patient: WAYLON NELSON Facility:?[facility] Patient ID:?[id number] Site Patient ID:?[id number]. Site :?[id number] Study:?XRay Chest PORTABLE-11/24/2021 1:25:58 PM Ordering Physician:Maria Luisa Mcguire Final Report: INDICATION: Altered mental status TECHNIQUE: Chest radiograph 1 view COMPARISON: 01/09/2021 FINDINGS: The sensitivity and specificity of the exam are moderately limited by the patient`s body habitus. Mediastinum: The mediastinum is normal in appearance. The heart silhouette is normal in size and morphology. Lung: Small lung volumes with moderate pulmonary vascular congestion is noted. No sign of pleural effusion seen. No pneumothorax is identified. Bone and Soft tissue: ORIF of the left humerus is partially visualized. IMPRESSION: 1. Small lung volumes with moderate pulmonary vascular congestion is noted. Dictated by Ronaldo Jeff MD @ 11/24/2021 1:48:09 PM Dictated by: Ronaldo Jeff MD @ 11/24/2021 13:48:13 (Electronic Signature) ECG Data Attestation: I personally reviewed and interpreted this ECG as follows: (Sinus rhythm, 92 beats per minute, QT corrected at 489 milliseconds.) ECG interpretation date: 11/24/21 ECG interpretation time: 12:00 Critical Care Time Critical Care Time Critical Care Time: No Discharge Plan Discharge Clinical Impression: Abscess of right kidney, Altered mental status, Pyelonephritis, Renal insufficiency Patient Disposition: Admitted As Inpatient Condition: Unchanged
[2021-11-24 11:29] LABS: Eosinophils Absolute Auto 0.02 K/uL (0.00-0.50); Eosinophils Percent Auto 0.2 % (0.0-7.0); Hemoglobin* 11.5 gm/dL (12.0-16.0); Immature Granulocytes Abs Auto 0.55 K/uL (0.00-0.30); Lymphocytes Percent Auto 7.3 % (20-44); Mean Corpuscular HGB Conc 33 gm/dL (32-36); Mean Corpuscular Hemoglobin 30 pg (26-34); Mean Corpuscular Volume 92 fL (80-100); Monocytes Percent Auto 7.8 % (0.0-11.0); Neutrophils Percent Auto 78.5 % (42.0-72.0); Platelet Count* 243 K/uL (140-440); RDW Coefficient of Variation % 13.7 % (11.5-15.5); Red Blood Count 3.82 m/uL (4.00-5.20)
[2021-11-24 11:36] LABS: Slide Review Reflex No
--- NOTE | 2021-11-24 11:40 | CRLHL7_ITS ---
For Patients: As a result of the Century Cures Act, medical imaging exams and procedure reports are released immediately into your electronic medical record. You may view this report before your referring provider. If you have questions, please contact your health care provider. INDICATION: Abnormal urinalysis. Clinical signs of infection. COMPARISON: A similar study of December 17, 2013 TECHNIQUE: CT examination of the abdomen and pelvis was performed without intravenous contrast. Thin section axial images were obtained from the lung bases through the pubic symphysis. Oral contrast was not administered. Please note that all CT scans at this facility use dose modulation, iterative reconstruction, and/or weight-based dosing when appropriate to reduce radiation dose to as low as reasonably achievable. FINDINGS: LUNG BASES: Basilar atelectasis. Heart size normal at the lung bases. LIVER/BILIARY SYSTEM:Enlarged fatty infiltrated liver. There is cholelithiasis which was present previously. The gallbladder is significantly distended but there is no wall thickening, pericholecystic fluid or biliary ductal dilatation. ADRENALS: Normal non-contrast appearance KIDNEYS, URETERS and BLADDER:The left kidney presents within normal noncontrast appearance. The right kidney is enlarged and edematous with perinephric stranding but no hydronephrosis or hydroureter. There is a mixed density mass with a fluid fluid level in the midpole of the right kidney measuring 3.2 centimeters. While this could be neoplastic, I suspect that it is an intrarenal abscess given the signs and symptoms of significant UTI. Careful clinical and imaging follow-up is recommended to ensure that this resolves. The bladder appears normal. SPLEEN:Mildly enlarged but no focal mass and unchanged PANCREAS: Normal non-contrast appearance. RETROPERITONEUM and MESENTERY: There is no mass, adenopathy or aortic aneurysm. GASTROINTESTINAL SYSTEM: There is no evidence of diverticulitis, colitis, mechanical obstruction, or appendicitis. The small bowel as visualized appears normal.Scattered diverticulosis. Mild fecal retention without mechanical obstruction PELVIS: No mass, adenopathy or free fluid. OSSEOUS STRUCTURES and ABDOMINAL WALL: There is an age-appropriate appearance of the osseous structures.No significant abdominal wall defect. OTHER: No free fluid or free air. I discussed this case with Dr. Whitehead at 12:55 p.m. on November 24, 2021 IMPRESSION: 1. Abnormal right kidney. The right kidney is enlarged and edematous with perinephric stranding but no evidence of obstructive uropathy. There is a mass in the midpole on the right measuring 3.2 centimeters containing a fluid fluid level. While this could be neoplastic, it is probably an intrarenal abscess given the clinical sizes symptoms of a significant UTI. Careful clinical and imaging follow-up recommended to assess for resolution 2. Distended gallbladder and cholelithiasis but no wall thickening, pericholecystic fluid or surrounding inflammatory change 3. Other nonacute appearing findings as above Please note that all CT scans at this facility use dose modulation, iterative reconstruction, and/or weight-based dosing when appropriate to reduce radiation dose to as low as reasonably achievable. Dictated by Matt Amato MD @ 11/24/2021 12:58:32 PM (Electronically Signed)
[2021-11-24] MEDS: cefTRIAXone 1 GM in 0.9 % SODIUM CHLORIDE Mini-bag 100 ML IVPB ×2 (11:42→22:04)
[2021-11-24 11:43] LABS: Albumin* 3.8 g/dL (3.3-5.0); Chloride* 101 mmol/L (96-114)
[2021-11-24] MEDS: 0.9 % SODIUM CHLORIDE 1000 ml 1,000 ML 500 ML IV (11:43)
[2021-11-24 11:44] LABS: Potassium* 4.2 mmol/L (3.6-5.1); Sodium* 137 mmol/L (135-149)
[2021-11-24 11:46] LABS: Creatinine* 2.7 mg/dL (0.5-1.5); Est. Creatinine Clearance* 21.05; Estimated Glomerular Filt Rate 21 ml/min
[2021-11-24 11:47] LABS: Alanine Aminotransferase* 22 U/L (4-35); Alkaline Phosphatase* 164 U/L (40-150); Aspartate Amino Transferase* 45 U/L (12-35); Blood Urea Nitrogen* 55 mg/dL (7-30); Calcium* 9.6 mg/dL (8.4-10.6); Carbon Dioxide* 19 mmol/L (20-32); Glucose* 190 mg/dL (60-115); Total Protein* 7.8 g/dL (6.0-8.3)
[2021-11-24 11:55] LABS: Troponin, Point-of-Care* 0.01 ng/ml (0.01-0.04)
[2021-11-24 11:56] LABS: NT Pro B Type NatriureticPept* 637 PG/mL (0-125)
[2021-11-24 11:56] LABS: Amphetamine Screen Urine Negative (Negative); Barbiturate Screen Urine Negative (Negative); Benzodiazepines Screen Urine Negative (Negative); Cannabinoid Screen Urine Negative (Negative); Cocaine Screen Urine Negative (Negative); Methadone Screen Urine Negative (Negative); Methamphetamines Screen Urine Negative (Negative); Opiate Screen Urine Negative (Negative); Oxycodone Screen Urine Negative (Negative); Phencyclidine Screen Urine Negative (Negative); Tricyclic Antidepressant Urine Negative (Negative)
[2021-11-24 12:01] LABS: Appearance Urine Cloudy (Clear); Bilirubin Urine 1+ (Negative); Blood Urine 3+ (Negative); Color Urine Yellow (Yellow); Glucose Urine Negative (Negative); Ketones Urine Negative (Negative); Leukocyte Esterase Urine 1+ (Negative); Nitrite Urine Negative (Negative); Protein Urine 3+ (Negative); Urobilinogen Urine 0.2 (0.2-1.0); pH Urine 5.5 (5.0-8.5)
[2021-11-24 12:04] LABS: Procalcitonin* 6.45 ng/mL (<0.50)
[2021-11-24 12:06] LABS: Ethanol* < 0.01 % (0.01-0.03)
[2021-11-24 12:09] LABS: Bacteria Urine Moderate; RBC Urine >100 (0-2); WBC Urine >100 (0-5)
[2021-11-24 12:17] LABS: TSH With Reflex to FT4* 0.525 uIU/mL (0.270-4.200)
[2021-11-24 12:30] LABS: SARS PCR* Negative SARS-CoV-2 (Negative)
[2021-11-24 12:46] LABS: C Reactive Protein* > 27.0 mg/dL (0.5-1.0)
--- NOTE | 2021-11-24 12:53 | W.PC.EDHO ---
Primary Language: Preferred Language: Orientation Status: [] Alert & Oriented [x] Slight Confusion [] Known Dx Dementia Transfers By: [] Assist of 1 [x] Assist of 2 [] Lift Active Medications Generic Name Dose Route Start Last Admin Trade Name Freq PRN Reason Stop Dose Admin Sodium Chloride 1,000 mls @ 500 mls/hr 11/24/21 11:41 11/24/21 11:43 0.9 % Sodium Chloride 1000 Ml IV 11/24/21 13:40 500 mls/hr .Q2H ARTURO Administration Discontinued Medications Generic Name Dose Route Start Last Admin Trade Name Freq PRN Reason Stop Dose Admin Ceftriaxone Sodium 1 gm/ 100 mls @ 200 mls/hr 11/24/21 11:28 11/24/21 12:35 Sodium Chloride IVPB 11/24/21 11:29 Infused ONCE ONE Infusion Description of Symptoms ED Triage Present Problem BIBA after an increase in lethargy and decrease in Description mental status. Was here Saturday for same thing. Has been receiving respiradol injection - last was satuda. ED Triage Date of Onset of 11/24/21 Symptoms Female History Patient No Damián Coma Scale Damián coma scale total score 13 IV Insertion/Site Date of IV Line Insertion [ 11/24/21 Right Forearm] Oxygen Administration Pulse Oximetry 95 Oxygen Delivery Method Room Air Cardiac Monitoring EKG Method 12 Lead
--- NOTE | 2021-11-24 13:02 | CRLHL7_ITS ---
For Patients: As a result of the Cures Act, medical imaging exams and procedure reports are released immediately into your electronic medical record. You may view this report before your referring provider. If you have questions, please contact your health care provider. INDICATION: Altered mental status TECHNIQUE: Chest radiograph 1 view COMPARISON: 01/09/2021 FINDINGS: The sensitivity and specificity of the exam are moderately limited by the patient`s body habitus. Mediastinum: The mediastinum is normal in appearance. The heart silhouette is normal in size and morphology. Lung: Small lung volumes with moderate pulmonary vascular congestion is noted. No sign of pleural effusion seen. No pneumothorax is identified. Bone and Soft tissue: ORIF of the left humerus is partially visualized. IMPRESSION: 1. Small lung volumes with moderate pulmonary vascular congestion is noted. Dictated by Ronaldo Jeff MD @ 11/24/2021 1:48:09 PM Dictated by: Ronaldo Jeff MD @ 11/24/2021 13:48:13 (Electronically Signed)
--- NOTE | 2021-11-24 13:48 | ED.NURSE ---
Due to pts condition on arrival, her clothes were cut off. Pt aware.
--- NOTE | 2021-11-24 14:03 | P.IMHP_ITS ---
Hospitalist- H&P: HPI History of Present Illness Date Seen: 11/24/21 Chief complaint: Altered mental status Narrative: Dolores Man is a 51 year old female resident of [facility] who presents with altered mental status, dyspnea, weakness. She was seen here 2 days ago with similar symptoms. At that time there was a question of a urinary tract infection. Subsequently her urine culture has grown out Klebsiella pneumonia sensitive to all tested antibiotics except amoxicillin. When I see the patient she is obtained ended. She is difficult to arouse and unable to give any significant history. Secondhand report indicates that she remains with altered mental status. She appears short of breath is apparently not eating much and having minimal activity. History significant for diabetes mellitus, bipolar 1, hypertension, hyperlipidemia. Unable to determine whether she is having fever, chest pain, abdominal pain. She did tell me she was having a headache today. Unknown if she hit her head. Review of Systems 2 Narrative: Unable to attain review of systems secondary to altered mental status. [facility] Medical History (Updated 11/24/21 @ 14:23 by Kan Gaona MD) Acute kidney injury Anxiety Asbestosis Asthma Cholelithiasis Elevated liver transaminase level Hx of fracture of humerus Hyperlipidemia Hypertension Hypothyroidism Insomnia Migraine Obesity Pleural plaque due to asbestos exposure Schizoaffective disorder Seasonal allergies Type 2 diabetes mellitus Surgical History (Updated 11/24/21 @ 13:38 by Kan Gaona MD) H/O hysterectomy with oophorectomy Social History Smoking Status: Current every day smoker What tobacco products do you use: cigarettes Do you use any of these nicotine containing products: None Second hand tobacco smoke exposure: Yes How often do you have a drink containing alcohol: 2-3 times a week AUDIT-C Alcohol total score: 3 Non-prescribed substance use: denies use service: No Meds Home Medications and Allergies Home Medications Medication Instructions Recorded Confirmed Type acetaminophen 500 mg tablet 1,000 mg PO BID 11/22/21 11/24/21 History aspirin 81 mg tablet,delayed 81 mg PO DAILY 11/22/21 11/24/21 History release atorvastatin 20 mg tablet 20 mg PO HS 11/22/21 11/24/21 History cetirizine 10 mg tablet 10 mg PO DAILY 11/22/21 11/24/21 History clonazepam 1 mg tablet 1 mg PO HS 11/22/21 11/24/21 History fluoxetine 20 mg capsule 20 mg PO DAILY 11/22/21 11/24/21 History gabapentin 100 mg capsule 100 mg PO TID 11/22/21 11/24/21 History gemfibrozil 600 mg tablet 600 mg PO BIDWM 11/22/21 11/24/21 History ibuprofen 400 mg tablet 400 mg PO TIDWM 11/22/21 11/24/21 History insulin aspart U-100 100 unit/mL 10 - 35 unit subcut TID 11/22/21 11/24/21 History (3 mL) subcutaneous pen (Novolog Flexpen U-100 Insulin aspart) insulin detemir U-100 100 unit/mL 20 unit subcut HS 11/22/21 11/24/21 History (3 mL) subcutaneous pen (Levemir FlexTouch U-100 Insulin) levothyroxine 88 mcg tablet 88 mcg PO DAILY 11/22/21 11/24/21 History lithium carbonate 450 mg 450 mg PO DAILY@12 11/22/21 11/24/21 History tablet,extended release sumatriptan succinate 50 mg tablet 50 mg PO Q2H PRN 11/22/21 11/24/21 History valacyclovir 1 gram tablet 1,000 mg PO DAILY PRN 11/22/21 11/24/21 History albuterol sulfate 90 mcg/actuation 2 inh inhalation QID PRN 11/24/21 11/24/21 History aerosol inhaler (Ventolin HFA) aluminum-mag hydroxide-simethicone 5 - 10 ml PO BID PRN 11/24/21 11/24/21 History 200 mg-200 mg-20 mg/5 mL oral susp (Advanced Antacid-Antigas) ammonium lactate 12 % topical cream 1 applic topical BID PRN 11/24/21 11/24/21 History benzonatate 100 mg capsule 100 mg PO TID PRN 11/24/21 11/24/21 History calcium carbonate 200 mg calcium 400 mg PO QID PRN 11/24/21 11/24/21 History (500 mg) chewable tablet (Antacid (calcium carbonate)) clotrimazole 1 % topical cream 1 applic topical BID PRN 11/24/21 11/24/21 History (Antifungal Ringworm) cyanocobalamin (vitamin B-12) 1,000 mcg PO DAILY 11/24/21 11/24/21 History 1,000 mcg tablet (Vitamin B-12) cyclobenzaprine 5 mg tablet 5 mg PO HS PRN 11/24/21 11/24/21 History diphenhydramine HCl 25 mg capsule 25 mg PO Q4H PRN 11/24/21 11/24/21 History (Aler-Cap) guaifenesin 100 mg/5 mL oral 100 mg PO Q4H PRN 11/24/21 11/24/21 History liquid (Chest Congestion Relief) ipratropium 0.5 mg-albuterol 3 mg 3 ml inhalation Q6H PRN 11/24/21 11/24/21 History (2.5 mg base)/3 mL nebulization soln loperamide 2 mg capsule 2 mg PO Q6H PRN 11/24/21 11/24/21 History (Anti-Diarrheal (loperamide)) lorazepam 0.5 mg tablet 0.5 mg PO DAILY PRN 11/24/21 11/24/21 History magnesium hydroxide 400 mg/5 mL 15 - 30 ml PO HS PRN 11/24/21 11/24/21 History oral suspension (Milk of Magnesia) menthol 5.8 mg lozenges (Cough 5.8 mg mucous membrane Q1-2H PRN 11/24/21 11/24/21 History Drops) ondansetron 4 mg oral soluble film 4 mg PO Q8H PRN 11/24/21 11/24/21 History Allergies Allergy/AdvReac Type Severity Reaction Status Date / Time celery Allergy Severe Anaphylaxis Verified 11/22/21 11:05 erythromycin base Allergy Unknown Verified 11/22/21 11:05 hydromorphone [From Dilaudid] Allergy Unknown Verified 11/22/21 11:05 Macrolide Antibiotics Allergy Unknown Verified 11/22/21 11:05 nifedipine Allergy Unknown Verified 11/22/21 11:05 turkey Allergy Unknown Verified 11/22/21 11:05 Exam Narrative: Exam Narrative: 51-year-old female who appears to be sleeping with mild increased work of breathing and snoring. Difficult to arouse. When she does arouse she is unable to speak clearly your answer questions appropriately. Head is without obvious trauma. She winces a little bit when I palpate over her left forehead. Pupils are equal round and reactive to light. Extraocular movements are full. Visual farooq appear intact to threat. No obvious facial asymmetry. Mucous membranes are very dry. Small airway. Neck is supple without mass or adenopathy. No stridor. Respirations with basilar crackles heard bilaterally otherwise clear to auscultation. No wheezing. Cardiovascular: S1, S2, regular rate and rhythm. Abdomen: Bowel sounds are present. Abdomen is soft with moderate right-sided tenderness both right upper and right lower quadrant tenderness. I do not palpate a mass. External genitalia is normal. Extremities with trace edema. She has intact pedal pulses. She does move all 4 extremities in response to painful stimuli Const: Vital Signs, click to edit/add: Vital Signs - 24 hr 11/24/21 10:58 11/24/21 11:30 11/24/21 12:00 Pulse Rate [Left P ulse Oximeter] 92 92 92 Blood Pressure [Le ft Upper Arm] 111/76 111/76 110/77 Pulse Oximetry 95 95 95 Oxygen Delivery Me thod Room Air Room Air Room Air 11/24/21 12:30 11/24/21 13:00 11/24/21 13:30 Pulse Rate [Left P ulse Oximeter] 92 92 92 Blood Pressure [Le ft Upper Arm] 108/70 93/66 106/82 Pulse Oximetry 95 95 95 Oxygen Delivery Me thod Room Air Room Air Room Air Documenting provider has reviewed patient's vital signs: yes Hospitalist - H&P: Result Labs Labs: Short CBC 11/24/21 Range/Units 11:18 WBC 8.90 (4.50-11.00) K/uL Hgb 11.5 L (12.0-16.0) gm/dL Hct 35.0 (33.0-51.0) % Plt Count 243 (140-440) K/uL BMP 11/24/21 11:00 Sodium 137 Potassium 4.2 Chloride 101 Carbon Dioxide 19 L BUN 55 H Creatinine 2.7 H Glucose 190 H Calcium 9.6 Liver Function 11/24/21 Range/Units 11:00 Total Bilirubin 1.0 (0.1-1.5) mg/dL AST 45 H (12-35) U/L ALT 22 (4-35) U/L Alkaline Phosphatase 164 H (40-150) U/L Albumin 3.8 (3.3-5.0) g/dL Urine 11/24/21 Range/Units 11:35 Urine Color Yellow (Yellow) Urine Appearance Cloudy A (Clear) Urine pH 5.5 (5.0-8.5) Ur Specific [place] 1.020 (1.000-1.030) Urine Protein 3+ A (Negative) Urine Glucose (UA) Negative (Negative) ECG Attestation: I personally reviewed and interpreted this ECG as follows: (Electrocardiogram shows normal sinus rhythm with a rate of 92 QTC is 396 corrected 489. No acute ST-T changes) Imaging CT scan - abdomen: Radiologist's impression: CT abdomen pelvis shows distended gallbladder without evidence of cholecystitis. She has cholelithiasis. Right kidney is enlarged and edematous with perinephric stranding but no obstructive uropathy. There is a mass in the midpole on the right at 3.2 cm containing a fluid level. Possible new neoplasm. Possible abscess. CT scan - head: Radiologist's impression: Head CT with no acute findings Chest x-ray: Attestation: I have reviewed the pertinent imaging results. (Chest x-ray shows no definite focal infiltrate. Question of increased vascular markings. Note history of asbestosis and pleural plaques) Assessment and Plan Assessment and plan (1) Abscess of right kidney: Problem comment: Likely the cause of urinary tract infection, altered mental status, right-sided abdominal pain. Patient appears fairly ill. Will initiate ceftriaxone 1 g q.12. Monitor for sepsis. Status: Acute (2) Acute kidney injury: Problem comment: Baseline creatinine 1.0. Creatinine now 2.6. Likely related to her kidney abscess but also her medications. Will hold her lithium, metformin, ibuprofen, gemfibrozil. Current renal function may be due to lithium toxicity or causing lithium toxicity or both Status: Acute (3) Bipolar 1 disorder: Problem comment: Recent addition of risperidone. This has been stopped. Will hold for now. Also holding lithium pending renal function and lithium level. Also holding any other sedating drugs. As she clinically improves will likely need reintroduction of appropriate therapy for bipolar disorder. Status: Acute (4) Type 2 diabetes mellitus: Problem comment: Restart basal bolus insulin at a modest dose. Titrate insulin to blood sugars. Sliding scale. Status: Acute (5) Cholelithiasis: Problem comment: She has mildly elevated transaminases which are likely due to fatty liver. She does have his distended gallbladder and cholelithiasis. Will monitor this clinically. Does not appear to have cholecystitis at this point Status: Acute (6) Elevated liver transaminase level: Problem comment: Chronic problem which is probably related fatty liver. She may also have biliary disease. Monitor clinically Status: Acute (7) Altered mental status: Problem comment: Primarily due to acute illness though medication effects are likely contributing as well. Hold lithium, risperidone and other sedating drugs temporarily. Status: Acute Plan Admit to the hospital for inpatient care. If she gets clinically worse may need assistance from Urology and possible transfer. At this time transfer to tertiary care for Urology is extremely difficult. Also continue to manage diabetes and bipolar disorder. Monitor for drug toxicity. Stop potentially toxic drugs. Monitor for sepsis. Total time spent today is 80 minutes, 60 minutes in coordination of care, review records and discussing with other providers management of renal abscess, bipolar disorder altered mental status and diabetes
[2021-11-24] MEDS: LACTATED RINGERS 1000 ML 1,000 ML 125 ML IV ×2 (14:27→22:04)
[2021-11-24] MEDS: GABAPENTIN 100 MG CAPSULE PO ×2 (14:29→20:31)
[2021-11-24 14:44] LABS: Magnesium* 3.1 mg/dL (1.5-2.6)
[2021-11-24 14:59] LABS: Troponin I* 0.01 ng/mL (0.01-0.04)
[2021-11-24 18:00] LABS: HCO3 VBG 18 mmol/L (21-28); PCO2 VBG 29 mmHG (40-50); PO2 VBG 41.7 mmHG (25-47)
--- NOTE | 2021-11-24 19:35 | PC.NURSE ---
Pt. up to floor at 1400. Pt. oriented to person, place, date but very lethargic and slow to respond. Pt. mumbling and slurring words. Pt. voided x2 dark arnol urine in bedside commode. Pt. assist of 2 w/gait belt. Bilateral teds, SCDs applied. Pt. on tele NSR, tachycardia. Pt. desats to 88 when asleep, 2 L oxygen applied and pt. maintains 93%. Pt. became febrile to 102. MD notified, no new orders at this time. IV in right forearm patent and intact. LR running at 125mls. Pt. remains lethargic throughout shift and decreased mental status.
[2021-11-24] MEDS: 0.9 % SODIUM CHLORIDE 250 ml 250 ML IV (19:41)
[2021-11-24] MEDS: ACETAMINOPHEN 500 MG TABLET 1000 MG PO (20:31)
[2021-11-24] MEDS: ATORVASTATIN 10 MG TABLET 20 MG PO (20:31)
--- NOTE | 2021-11-24 21:10 | PC.NURSE ---
Nurse from [facility] called to check on pt. Verbal ok from pt gotten to discuss admission and reason for it.
[2021-11-25] VITALS (22 sets, daily range): BP systolic 100–153; BP diastolic 62–84; PULSE 83–108; RESP 18–30; TEMP 36.6–39.1; O2SAT 92–100
--- NOTE | 2021-11-25 04:02 | PC.NURSE ---
Notified Dr. Jozef Durham at 0310 of pt.'s aneroebic blood culture bottles positive for Gram (-) rods. noted pt. receiving Ceftriaxone IV, and pt.'s current BP 98/61, increased to 105/67 on recheck at 0400. Pt. receiving LR at 125mL/hr. No new orders at this time
[2021-11-25] MEDS: LACTATED RINGERS 1000 ML 1,000 ML 125 ML IV ×2 (06:12→13:12)
--- NOTE | 2021-11-25 06:26 | PC.NURSE ---
Shift 7p-7a: Pt. alert when aroused by calling name or by physical touch. Last night, pt. was difficult to arouse but this morning is opening eyes, following commands, and able to maintain conversation with race and sports book writer although speech is garbled/mumbled. Pt. ate jello and drank water last night, no swallowing difficulties noted. Pt. somewhat restless, requesting to smoke a cigarette and wanting to take wires and leads off, re-directable. Pt. used bedpan w/o issues and intermittently incontinent in brief. Pt.'s two anaerobic blood cultures positive for Gram (-) rods, Dr. Willis notified. stated to continue monitoring BP and notify if MAP decreases < 65. Pt. receiving LR @ 125mL/hr
--- NOTE | 2021-11-25 07:43 | CRLHL7_ITS ---
For Patients: As a result of the Cures Act, medical imaging exams and procedure reports are released immediately into your electronic medical record. You may view this report before your referring provider. If you have questions, please contact your health care provider. CLINICAL HISTORY: Right renal abscess versus pyelo Comparison CT 11/24/2021 FINDINGS: Liver suboptimally visualized but unremarkable. Gallbladder is distended with sludge in probable stone. Gallbladder wall measures 4 millimeters minimally thickened nonspecific. Common bile duct measures 3 millimeters. The right kidney measures 14.4 centimeters there is a 4.4 x 2.7 x 3.4 centimeter complex partially cystic area in the right lateral kidney. The central portion appears anechoic/simple in appearance. IMPRESSION: 1. 4.4 x 2.7 x 2.4 centimeter complex partially cystic area in the right lateral kidney. These central portion appears anechoic/simple in appearance. Could be related to infected cyst, focal pyelo. Abscess is not completely excluded. Follow-up contrast CT is recommended to ensure resolution. 2. Gallbladder appears distended with sludge and probable stone. Gallbladder wall minimally thickened measuring 4 millimeter is nonspecific. Dictated by Pinky Armas MD @ 11/25/2021 11:20:33 AM (Electronically Signed)
[2021-11-25] MEDS: LEVOTHYROXINE 88 MCG TABLET PO (07:47)
[2021-11-25 07:54] LABS: HCO3 VBG 19 mmol/L (21-28); Lactate* 1.5 mmol/L (0.5-1.9); PCO2 VBG 28 mmHG (40-50); pH VBG 7.436 (7.32-7.43)
[2021-11-25 07:55] LABS: Ionized Calcium* 1.17 mmol/L (1.11-1.30)
[2021-11-25 07:58] LABS: Basophils Percent Auto 0.2 % (0.0-3.0); Eosinophils Percent Auto 0.2 % (0.0-7.0); Hematocrit 27.8 % (33.0-51.0); Hemoglobin* 9.2 gm/dL (12.0-16.0); Lymphocytes Percent Auto 7.4 % (20-44); Mean Corpuscular HGB Conc 33 gm/dL (32-36); Mean Corpuscular Hemoglobin 31 pg (26-34); Mean Corpuscular Volume 92 fL (80-100); Monocytes Percent Auto 7.4 % (0.0-11.0); Neutrophils Percent Auto 82.4 % (42.0-72.0); Platelet Count* 233 K/uL (140-440); RDW Coefficient of Variation % 13.8 % (11.5-15.5); Red Blood Count 3.02 m/uL (4.00-5.20); White Blood Count* 12.38 K/uL (4.50-11.00)
[2021-11-25 08:01] LABS: Slide Review Reflex No
[2021-11-25 08:13] LABS: Albumin* 3.2 g/dL (3.3-5.0); Chloride* 108 mmol/L (96-114); Sodium* 139 mmol/L (135-149)
[2021-11-25 08:14] LABS: Potassium* 4.7 mmol/L (3.6-5.1)
[2021-11-25 08:16] LABS: Alkaline Phosphatase* 157 U/L (40-150); Aspartate Amino Transferase* 34 U/L (12-35); Bilirubin Total* 0.9 mg/dL (0.1-1.5); Blood Urea Nitrogen* 51 mg/dL (7-30); Carbon Dioxide* 18 mmol/L (20-32); Creatinine* 2.2 mg/dL (0.5-1.5); Est. Creatinine Clearance* 25.83; Estimated Glomerular Filt Rate 26 ml/min; Lipase* 39 U/L (23-300); Total Protein* 6.8 g/dL (6.0-8.3)
[2021-11-25 08:17] LABS: Alanine Aminotransferase* 18 U/L (4-35); Gamma Glutamyl Transpeptidase* 42 U/L (8-55); Glucose* 158 mg/dL (60-115); Magnesium* 2.7 mg/dL (1.5-2.6)
[2021-11-25] MEDS: ACETAMINOPHEN 500 MG TABLET 1000 MG PO (08:23)
[2021-11-25] MEDS: GABAPENTIN 100 MG CAPSULE PO ×2 (08:24→14:23)
[2021-11-25] MEDS: FLUOXETINE HCL 20 MG CAPSULE PO (08:24)
[2021-11-25 08:25] LABS: NT Pro B Type NatriureticPept* 1700 PG/mL (0-125)
--- NOTE | 2021-11-25 08:41 | P.IMPN_ITS ---
Progress Note: A&P Assessment and plan (1) Acute kidney injury: Problem details: Baseline creatinine 1.0. Creatinine now 2.2 Likely related to her kidney abscess but also her medications. Will hold her lithium, metformin, ibuprofen, gemfibrozil. Current renal function may be due to lithium toxicity or causing lithium toxicity or both Status: Acute Assessment and Plan: continue current abx; rocephin 1 gram IV q12. steiner. measure I/O. continues to fever. fluids. may need to discuss with ID. (2) Acute dehydration: Status: Acute Assessment and Plan: steiner. measure I/O. continue fluids. (3) Abscess of right kidney: Problem details: The right kidney is enlarged and edematous with perinephric stranding but no hydronephrosis or hydroureter. There is a mixed density mass with a fluid fluid level in the midpole of the right kidney measuring 3.2 centimeters. While this could be neoplastic, I suspect that it is an intrarenal abscess given the signs and symptoms of significant UTI. 1. 4.4 x 2.7 x 2.4 centimeter complex partially cystic area in the right lateral kidney. These central portion appears anechoic/simple in appearance. Could be related to infected cyst, focal pyelo. Abscess is not completely excluded. Follow-up contrast CT is recommended to ensure resolution. Status: Acute Assessment and Plan: as above. continue abx; discuss with ID. (4) Altered mental status: Problem details: Primarily due to acute illness though medication effects are likely contributing as well. Hold lithium, risperidone and other sedating drugs temporarily. Status: Acute (5) Pyelonephritis: Status: Acute (6) Type 2 diabetes mellitus: Problem details: Restart basal bolus insulin at a modest dose. Titrate insulin to blood sugars. Sliding scale. Status: Acute Assessment and Plan: Blood sugars since midnight 156, 215 A1c between 7 and 8. (7) Cholelithiasis: Problem details: She has mildly elevated transaminases which are likely due to fatty liver. She does have his distended gallbladder and cholelithiasis. Will monitor this clinically. Does not appear to have cholecystitis at this point Status: Acute Assessment and Plan: No acute cholecystitis. Trend. (8) Elevated liver transaminase level: Problem details: Chronic problem which is probably related fatty liver. She may also have biliary disease. Monitor clinically Status: Acute (9) Bipolar 1 disorder: Problem details: Recent addition of risperidone. This has been stopped. Will hold for now. Also holding lithium pending renal function and lithium level. Also holding any other sedating drugs. As she clinically improves will likely need reintroduction of appropriate therapy for bipolar disorder. Status: Acute Subjective Time Seen by Provider: 08:42 Date Seen: 11/25/21 Interval history: Daily Progress Note - Hospital Medicine Day #: 2 Rocephin Day 2 (1 gram q12; first dose: evening of 11/24) CC: altered MS, right renal abscess, bacteremia, continuing to fever OVERNIGHT UPDATES FROM STAFF & MED, LAB, IMAGING UPDATES febrile to 102.9 last night. blood pressures soft. better this morning. more awake. Blood pressure 134/76. Pulse 94. Respirations 18. Temp 97.8?. O2 sats 93% on 1 L. CBC reflects an increasing leukocytosis up to 12.4 this morning. Hemoglobin has dropped to 9.2 Blood gas shows she is mildly acidemic with a bicarb of 19 and a CO2 of 28 Creatinine has improved to 2.2 from 2.7 A1c 7.4 Magnesium was elevated on admission 3.1?, now is 2.7 CRP remains markedly elevated, reporting a greater than 27 BNP has jumped from 637, now 1700 Procalcitonin 6.45, now 11.10 Abdominal Ultrasound IMPRESSION: 1. 4.4 x 2.7 x 2.4 centimeter complex partially cystic area in the right lateral kidney. These central portion appears anechoic/simple in appearance. Could be related to infected cyst, focal pyelo. Abscess is not completely excluded. Follow-up contrast CT is recommended to ensure resolution. 2. Gallbladder appears distended with sludge and probable stone. Gallbladder wall minimally thickened measuring 4 millimeter is nonspecific. Review of Systems: difficult to arouse. Objective: moaning, somewhat coherent. only opens eyes after several requests. incontinent. Vitals: see above Lungs: Clear. abdomen: obese, soft, no obvious grimace to right flank palpation Cardiac: S1S2. What is on hold: Albuterol, Lac-Hydrin, aspirin, Benzonate, calcium carbonate, Zyrtec, clonazepam, clotrimazole, B12, gemfibrozil, guaifenesin, ibuprofen, lithium, lorazepam, Of these that could be causing YUMIKO and or sedation: Clonazepam gemfibrozil ibuprofen lithium lorazepam and the recently added risperidone Continue fluoxetine, atorvastatin, and acids, gabapentin, insulin (albeit adjusted), DuoNebs, levothyroxine, Imitrex if needed Disposition/Potential discharge - at least 48 hours out Likely to return to previous living situation. Total time is 35 minutes with greater than 50% spent in counseling and coordination of care. Exam Const: Vital Signs, click to edit/add: Vital Signs - 24 hr 11/24/21 10:58 11/24/21 11:30 11/24/21 12:00 Temperature Pulse Rate Pulse Rate [Left P ulse Oximeter] 92 92 92 Pulse Rate [Pulse Oximeter] Respiratory Rate Blood Pressure [Le ft Arm] Blood Pressure [Le ft Upper Arm] 111/76 111/76 110/77 Pulse Oximetry 95 95 95 [facility] Room Air Room Air Oxygen Flow Rate 11/24/21 12:30 11/24/21 13:00 11/24/21 13:30 Temperature Pulse Rate Pulse Rate [Left P ulse Oximeter] 92 92 92 Pulse Rate [Pulse Oximeter] Respiratory Rate Blood Pressure [Le ft Arm] Blood Pressure [Le ft Upper Arm] 108/70 93/66 106/82 Pulse Oximetry 95 95 95 [facility] Room Air Room Air Oxygen Flow Rate 11/24/21 14:00 11/24/21 14:00 11/24/21 15:12 Temperature 97.5 F L 97.5 F L 97.5 F L Pulse Rate Pulse Rate [Left P ulse Oximeter] Pulse Rate [Pulse Oximeter] Respiratory Rate 20 20 20 Blood Pressure [Le ft Arm] 122/91 H 122/91 H 122/91 H Blood Pressure [Le ft Upper Arm] Pulse Oximetry 94 94 94 Oxygen Delivery Hi thod Room Air Room Air Room Air Oxygen Flow Rate 11/24/21 15:00 11/24/21 15:00 11/24/21 15:00 Temperature Pulse Rate 120 H Pulse Rate [Left P ulse Oximeter] Pulse Rate [Pulse Oximeter] Respiratory Rate 20 20 Blood Pressure [Le ft Arm] Blood Pressure [Le ft Upper Arm] Pulse Oximetry 92 Oxygen Delivery Hi thod Room Air Oxygen Flow Rate 11/24/21 18:00 11/24/21 19:00 11/24/21 22:20 Temperature 102.9 F H 100.3 F H Pulse Rate 107 H Pulse Rate [Left P ulse Oximeter] Pulse Rate [Pulse Oximeter] 120 H Respiratory Rate 20 20 Blood Pressure [Le ft Arm] 126/75 115/65 Blood Pressure [Le ft Upper Arm] Pulse Oximetry 91 93 Oxygen Delivery Me thod Nasal Cannula OxyMask Oxygen Flow Rate 2 2 11/24/21 22:20 11/24/21 22:20 11/24/21 22:20 Temperature 99.9 F H Pulse Rate Pulse Rate [Left P ulse Oximeter] Pulse Rate [Pulse Oximeter] 107 H 107 H Respiratory Rate 20 20 20 Blood Pressure [Le ft Arm] 108/66 Blood Pressure [Le ft Upper Arm] Pulse Oximetry 96 96 Oxygen Delivery Me thod OxyMask OxyMask Oxygen Flow Rate 2 2 11/25/21 02:39 11/25/21 04:06 11/25/21 06:00 Temperature 98.8 F 98.7 F 98.7 F Pulse Rate Pulse Rate [Left P ulse Oximeter] Pulse Rate [Pulse Oximeter] 85 83 89 Respiratory Rate 20 20 20 Blood Pressure [Le ft Arm] 100/70 105/67 127/83 Blood Pressure [Le ft Upper Arm] Pulse Oximetry 97 95 92 Oxygen Delivery Me thod OxyMask OxyMask Nasal Cannula Oxygen Flow Rate 1 1 2 11/25/21 07:48 11/25/21 07:54 11/25/21 08:23 Temperature 100.4 F H 100.4 F H Pulse Rate Pulse Rate [Left P ulse Oximeter] Pulse Rate [Pulse Oximeter] 106 H Respiratory Rate 18 Blood Pressure [Le ft Arm] 125/81 Blood Pressure [Le ft Upper Arm] Pulse Oximetry 100 94 Oxygen Delivery Me thod Room Air Nasal Cannula Oxygen Flow Rate 2 1 Labs Labs: Laboratory Results - last 24 hr 11/24/21 11/24/21 11/24/21 11:00 11:00 11:00 WBC RBC Hgb Hct MCV MCH MCHC RDW Coeff of Norris Plt Count Neut % (Auto) Lymph % (Auto) Surry % (Auto) Eos % (Auto) Baso % (Auto) Neut # (Auto) Lymph # (Auto) [place] # (Auto) Eos # (Auto) Baso # (Auto) Abs Immat Gran (auto) VBG pH 7.335 VBG pCO2 38 L VBG pO2 49.4 H VBG HCO3 20 L Sodium 137 Potassium 4.2 Chloride 101 Carbon Dioxide 19 L BUN 55 H Creatinine 2.7 H Estimated Creat Clear 21.05 Estimated GFR 21 Glucose 190 H Hemoglobin A1c Lactate 1.1 Calcium 9.6 Ionized Calcium Dong Magnesium 3.1 H Total Bilirubin 1.0 GGT AST 45 H ALT 22 Alkaline Phosphatase 164 H Troponin I 0.01 C-Reactive Protein > 27.0 H NT-Pro-B Natriuret Pep 637 H Total Protein 7.8 Albumin 3.8 Lipase Procalcitonin 6.45 H TSH 0.525 Urine Color Urine Appearance Urine pH Ur Specific Jefferson Urine Protein Urine Glucose (UA) Urine Ketones Urine Blood Urine Nitrite Urine Bilirubin Urine Urobilinogen Ur Leukocyte Esterase Urine RBC Urine WBC Ur Squamous Epith Cells Urine Bacteria Urine Opiates Screen Ur Oxycodone Screen Urine Methadone Screen Ur Propoxyphene Screen Ur Barbiturates Screen U Tricyclic Antidepress Ur Phencyclidine Scrn Ur Amphetamines Screen U Methamphetamines Scrn U Benzodiazepines Scrn Urine Cocaine Screen U Marijuana (THC) Screen Ur Drug Screen Comment Ethyl Alcohol < 0.01 L SARS-CoV-2 (PCR) POC Troponin I 11/24/21 11/24/21 11/24/21 11:00 11:18 11:18 WBC 8.90 RBC 3.82 L Hgb 11.5 L Hct 35.0 MCV 92 MCH 30 MCHC 33 RDW Coeff of Norris 13.7 Plt Count 243 Neut % (Auto) 78.5 H Lymph % (Auto) 7.3 L Surry % (Auto) 7.8 Eos % (Auto) 0.2 Baso % (Auto) 0.0 Neut # (Auto) 7.00 Lymph # (Auto) 0.60 L Surry # (Auto) 0.70 Eos # (Auto) 0.02 Baso # (Auto) 0.00 Abs Immat Gran (auto) 0.55 H VBG pH VBG pCO2 VBG pO2 VBG HCO3 Sodium Potassium Chloride Carbon Dioxide BUN Creatinine Estimated Creat Clear Estimated GFR Glucose Hemoglobin A1c 7.40 H Lactate Calcium Ionized Calcium Dong Magnesium Total Bilirubin GGT AST ALT Alkaline Phosphatase Troponin I C-Reactive Protein NT-Pro-B Natriuret Pep Total Protein Albumin Lipase Procalcitonin TSH Urine Color Urine Appearance Urine pH Ur Specific [place] Urine Protein Urine Glucose (UA) Urine Ketones Urine Blood Urine Nitrite Urine Bilirubin Urine Urobilinogen Ur Leukocyte Esterase Urine RBC Urine WBC Ur Squamous Epith Cells Urine Bacteria Urine Opiates Screen Ur Oxycodone Screen Urine Methadone Screen Ur Propoxyphene Screen Ur Barbiturates Screen U Tricyclic Antidepress Ur Phencyclidine Scrn Ur Amphetamines Screen U Methamphetamines Scrn U Benzodiazepines Scrn Urine Cocaine Screen U Marijuana (THC) Screen Ur Drug Screen Comment Ethyl Alcohol SARS-CoV-2 (PCR) POC Troponin I 0.01 11/24/21 11/24/21 11/24/21 11:35 11:35 11:35 WBC RBC Hgb Hct MCV MCH MCHC RDW Coeff of Norris Plt Count Neut % (Auto) Lymph % (Auto) Surry % (Auto) Eos % (Auto) Baso % (Auto) Neut # (Auto) Lymph # (Auto) Surry # (Auto) Eos # (Auto) Baso # (Auto) Abs Immat Gran (auto) VBG pH VBG pCO2 VBG pO2 VBG HCO3 Sodium Potassium Chloride Carbon Dioxide BUN Creatinine Estimated Creat Clear Estimated GFR Glucose Hemoglobin A1c Lactate Calcium Ionized Calcium Dong Magnesium Total Bilirubin GGT AST ALT Alkaline Phosphatase Troponin I C-Reactive Protein NT-Pro-B Natriuret Pep Total Protein Albumin Lipase Procalcitonin TSH Urine Color Yellow Urine Appearance Cloudy A Urine pH 5.5 Ur Specific [place] 1.020 Urine Protein 3+ A Urine Glucose (UA) Negative Urine Ketones Negative Urine Blood 3+ A Urine Nitrite Negative Urine Bilirubin 1+ A Urine Urobilinogen 0.2 Ur Leukocyte Esterase 1+ A Urine RBC >100 A Urine WBC >100 A Ur Squamous Epith Cells None Urine Bacteria Moderate A Urine Opiates Screen Negative Ur Oxycodone Screen Negative Urine Methadone Screen Negative Ur Propoxyphene Screen Negative Ur Barbiturates Screen Negative U Tricyclic Antidepress Negative Ur Phencyclidine Scrn Negative Ur Amphetamines Screen Negative U Methamphetamines Scrn Negative U Benzodiazepines Scrn Negative Urine Cocaine Screen Negative U Marijuana (THC) Screen Negative Ur Drug Screen Comment See Note Ethyl Alcohol SARS-CoV-2 (PCR) Negative SARS-CoV-2 POC Troponin I 11/24/21 11/25/21 11/25/21 17:53 07:30 07:30 WBC 12.38 H RBC 3.02 L Hgb 9.2 L Hct 27.8 L MCV 92 MCH 31 MCHC 33 RDW Coeff of Norris 13.8 Plt Count 233 Neut % (Auto) 82.4 H Lymph % (Auto) 7.4 L Surry % (Auto) 7.4 Eos % (Auto) 0.2 Baso % (Auto) 0.2 Neut # (Auto) 10.20 H Lymph # (Auto) 0.90 Surry # (Auto) 0.90 Eos # (Auto) 0.00 Baso # (Auto) 0.00 Abs Immat Gran (auto) 0.30 VBG pH 7.400 7.436 H VBG pCO2 29 L 28 L VBG pO2 41.7 165.0 H VBG HCO3 18 L 19 L Sodium Potassium Chloride Carbon Dioxide BUN Creatinine Estimated Creat Clear Estimated GFR Glucose Hemoglobin A1c Lactate 1.5 Calcium Ionized Calcium Dong Magnesium Total Bilirubin GGT AST ALT Alkaline Phosphatase Troponin I C-Reactive Protein NT-Pro-B Natriuret Pep Total Protein Albumin Lipase Procalcitonin TSH Urine Color Urine Appearance Urine pH Ur Specific [place] Urine Protein Urine Glucose (UA) Urine Ketones Urine Blood Urine Nitrite Urine Bilirubin Urine Urobilinogen Ur Leukocyte Esterase Urine RBC Urine WBC Ur Squamous Epith Cells Urine Bacteria Urine Opiates Screen Ur Oxycodone Screen Urine Methadone Screen Ur Propoxyphene Screen Ur Barbiturates Screen U Tricyclic Antidepress Ur Phencyclidine Scrn Ur Amphetamines Screen U Methamphetamines Scrn U Benzodiazepines Scrn Urine Cocaine Screen U Marijuana (THC) Screen Ur Drug Screen Comment Ethyl Alcohol SARS-CoV-2 (PCR) POC Troponin I 11/25/21 11/25/21 07:30 07:30 WBC RBC Hgb Hct MCV MCH MCHC RDW Coeff of Norris Plt Count Neut % (Auto) Lymph % (Auto) Surry % (Auto) Eos % (Auto) Baso % (Auto) Neut # (Auto) Lymph # (Auto) Surry # (Auto) Eos # (Auto) Baso # (Auto) Abs Immat Gran (auto) VBG pH VBG pCO2 VBG pO2 VBG HCO3 Sodium 139 Potassium 4.7 Chloride 108 Carbon Dioxide 18 L BUN 51 H Creatinine 2.2 H Estimated Creat Clear 25.83 Estimated GFR 26 Glucose 158 H Hemoglobin A1c Lactate Calcium 9.0 Ionized Calcium Dong 1.17 Magnesium 2.7 H Total Bilirubin 0.9 GGT 42 AST 34 ALT 18 Alkaline Phosphatase 157 H Troponin I C-Reactive Protein NT-Pro-B Natriuret Pep 1700 H Total Protein 6.8 Albumin 3.2 L Lipase 39 Procalcitonin 11.10 H TSH Urine Color Urine Appearance Urine pH Ur Specific [place] Urine Protein Urine Glucose (UA) Urine Ketones Urine Blood Urine Nitrite Urine Bilirubin Urine Urobilinogen Ur Leukocyte Esterase Urine RBC Urine WBC Ur Squamous Epith Cells Urine Bacteria Urine Opiates Screen Ur Oxycodone Screen Urine Methadone Screen Ur Propoxyphene Screen Ur Barbiturates Screen U Tricyclic Antidepress Ur Phencyclidine Scrn Ur Amphetamines Screen U Methamphetamines Scrn U Benzodiazepines Scrn Urine Cocaine Screen U Marijuana (THC) Screen Ur Drug Screen Comment Ethyl Alcohol SARS-CoV-2 (PCR) POC Troponin I
--- NOTE | 2021-11-25 09:47 | REH.OT ---
Orders received for OT eval and treat. Patient moved to CCU due to medical condition. She is not appropriate for therapy at this time. Will attempt 11/26/21.
[2021-11-25] MEDS: cefTRIAXone 1 GM in 0.9 % SODIUM CHLORIDE Mini-bag 100 ML IVPB (10:30)
[2021-11-25 11:42] LABS: Appearance Urine Slightly Cloudy (Clear); Bilirubin Urine Negative (Negative); Blood Urine 3+ (Negative); Color Urine Yellow (Yellow); Glucose Urine Negative (Negative); Ketones Urine Negative (Negative); Leukocyte Esterase Urine 1+ (Negative); Nitrite Urine Negative (Negative); Protein Urine 2+ (Negative); Urobilinogen Urine 0.2 (0.2-1.0)
[2021-11-25 12:09] LABS: Bacteria Urine Moderate; RBC Urine 50-100 (0-2); Squamous Epithelial Cell Urine Moderate (None-Few); WBC Urine 25-50 (0-5)
[2021-11-25 13:21] LABS: C Reactive Protein* 40.8 mg/dL (0.5-1.0)
[2021-11-25 14:37] LABS: Thyroid Stimulating Hormone* 0.271 uIU/mL (0.270-4.20)
--- NOTE | 2021-11-25 16:11 | PM.EN ---
Chart Event Note Time Seen by Provider: 16:00 Date Seen: 11/25/21 Chart Event Note: I called and spoke with the patient's mother, Nichole Manriquez, on her cell phone, . Additionally, yesterday I spoke with her in person while she was here in the hospital visiting her daughter. In yesterday's conversation with the patient's mother I informed her that we will do what we can here in our hospital, however if the patient's condition did not improve or worsen that we would need to consider additional measures to stabilize the patient's condition including possibly having to transfer her to a tertiary medical care facility. Patient mother expressed understanding and willingness to proceed as such. I updated the patient's mother today on her daughter's condition not improving and possibly worsening in regards to the kidney abscess. I informed her that we need to consider measures that we are not able to provide such as draining the abscess. I again discussed that we need to try to do so at a tertiary medical care facility that provides this higher level of care. Nichole expressed understanding and desire to proceed with this effort if at all possible. She understands that because of the limitations of availability in tertiary medical care facilities that we will do our best to find such a place nearby but we are not able to guarantee any particular hospital. She expressed understanding and asked us to proceed with efforts to try to help her daughter in this way. We will update Nichole after we have been able to make arrangements for her to be transferred to another hospital that is able to provide the higher level of care that we are not able to provide for her at this time.
[2021-11-25] MEDS: ACETAMINOPHEN 325 MG TABLET 650 MG PO (18:07)
--- NOTE | 2021-11-25 19:17 | PC.NURSE ---
Transfer-- Pleasant, although very somnolent patient, was transferred to [facility] via EMS at approximately 1830. VSS, though mildly tachycardic with HR in 100s and tachypneic with RR 24-30. Febrile with temp as high as 102.3F this evening and pt was given Tylenol PRN in addition to scheduled. She c/o back pain once today, but stated improvement with repositioning alone. SPO2 maintained >90% with 1L per n.c. Pt was arousable to verbal stimuli, but responded primarily with grunts and garbled speech. Telemetry showed NSR to Sinus tachycardia. LS CTA. She denied nausea and ate only a few bites of clear liquids today. She did require assistance and was noted to cough after drinking. Blood sugars 156, 215 and 281 and pt was given only sliding scale Novolog and Levemir today r/t not eating. White was placed and drained approximately 1350ml of light arnol, cloudy urine this shift. She was repositioned in bed only today r/t her decreased level of consciousness, but was repositioned frequently. With patient permission, updates were given via telephone to Edda Varela and [place]ano and this evening Delmi and Nichole were at bedside. They appear loving and supportive. Nurse to nurse report was given to Robyn at [facility] and all questions were answered. She was sent with SUZAN olvera and White intact.
--- NOTE | 2021-11-27 14:48 | PC.NURSE ---
ENTERED PATIENT'S CHART TO FIND LITHIUM LEVEL TO SEND TO [facility],
[2021-11-27 22:18] LABS: Lithium, Serum or Plasma 1.1 mmol/L (0.5-1.2)
--- NOTE | 2021-11-28 08:49 | PC.NURSE ---
Faxed [place] level to [facility] per request.
== END 2021-11-25 19:30 | disposition short-term general hospital (02) | DRG 690 ==
LOC: ED 13:15 → MEDSURG 13:49
PROVIDERS: Family Medicine; Internal Medicine; Admitting Provider Family Medicine; Emergency Provider Family Medicine; PCP Family Medicine; Visit Provider Family Medicine
DX: N15.1 Renal and perinephric abscess (principal); N17.9 Acute kidney failure, unspecified; N10 Acute pyelonephritis; B96.1 Klebsiella pneumoniae [K. pneumoniae] as the cause of diseases classified elsewhere; E86.0 Dehydration; R41.82 Altered mental status, unspecified; T43.595A Adverse effect of other antipsychotics and neuroleptics, initial encounter; E11.9 Type 2 diabetes mellitus without complications; F25.0 Schizoaffective disorder, bipolar type; K76.0 Fatty (change of) liver, not elsewhere classified; J92.0 Pleural plaque with presence of asbestos; F41.9 Anxiety disorder, unspecified; I10 Essential (primary) hypertension; J45.909 Unspecified asthma, uncomplicated; E66.9 Obesity, unspecified; F17.210 Nicotine dependence, cigarettes, uncomplicated; K80.20 Calculus of gallbladder without cholecystitis without obstruction; E78.5 Hyperlipidemia, unspecified; E03.9 Hypothyroidism, unspecified
CPT/HCPCS: 36415; 51702; 70450; 71045; 74176; 76705; 80048; 80053; 80076; 80178; 80306; 81001; 82077; 82150; 82330; 82803; 82947; 82977; 83036; 83605; 83690; 83735; 83880; 84145; 84443; 84484; 85025; 86140; 87040; 87086; 87186; 87635; 93005; 94761; 97161; 99284; 99285; A9270; J0696; J7030; J7050; J7120

== ENCOUNTER 2021-11-25 18:21 | Outpatient (CLI) | payer MEDICARE, MEDICAID, SELFPAY | END 2021-11-25 18:22 | disposition home or self-care (01) | LOC: AMB 12-13 16:15 | PROVIDERS: PCP Family Medicine; Visit Provider Emergency Medicine Emergency Medical Services | DX: A41.9 Sepsis, unspecified organism (principal); N15.1 Renal and perinephric abscess; R41.82 Altered mental status, unspecified | CPT/HCPCS: A0425; A0427 ==

== ENCOUNTER 2021-12-28 13:16 | Outpatient (CLI) | payer MEDICARE, MEDICAID, SELFPAY | END 2021-12-28 13:17 | disposition home or self-care (01) | LOC: AMB 01-03 11:44 | PROVIDERS: PCP Family Medicine; Visit Provider Family Medicine | DX: R41.82 Altered mental status, unspecified (principal); I95.9 Hypotension, unspecified | CPT/HCPCS: A0425; A0427 ==

== ENCOUNTER 2021-12-28 13:49 | Emergency (ER) | payer MEDICARE, MEDICAID, SELFPAY ==
[2021-12-28] VITALS (12 sets, daily range): BP systolic 95; BP diastolic 56; PULSE 90–108; RESP 18; TEMP 36; O2SAT 94–99; BMI 31.9
--- NOTE | 2021-12-28 14:33 | ED_ITS ---
HPI - General Adult General Time Seen by Provider: 14:34 Date Seen: 12/28/21 Chief complaint: Altered Mental Status Stated complaint: Potential stroke Time Seen by Provider: 12/28/21 13:51 Source: patient, EMS, RN notes reviewed and old records reviewed Mode of arrival: EMS Limitations: no limitations History of Present Illness HPI narrative: This 51-year-old female with a complex medical history is sent by ambulance from a [facility] where she reportedly had a reaction after CT scan. Her primary care provider Dr. Abbott called me. Did call the ambulance as Dolores had reported the potentially had a reaction to the contrast dye. She was having a repeat abdomen pelvis with IV contrast in stated she could not breathe. She stated that she had chest pain and was sweaty with this. He did not have to provide her with any epinephrine. There was reportedly no changes in her vitals. States the lowest her oxygen went was 93 and with fluids and supplemental oxygen her reaction abated. She is diabetic and they did check a sugar in it was 222. Her history recently has been complex. She was hospitalized here earlier in November for a right renal abscess and was sent from our institution tablet. We were able to pull up old records and she was hospitalized at [facility] November 25 through December 05. Her principal diagnosis was sepsis with end-organ dysfunction, acute kidney injury, due to Klebsiella bacteremia and pyelonephritis. During her hospitalization they did consult Interventional Radiology and they did not feel the abscess was large enough to drain. Infectious Disease was consulted and she was initially treated with ceftriaxone and then transition to cefuroxime with a plan for 6 weeks of treatment. She states she still taking oral antibiotic. She will be following up with Infectious Disease in clinic at the 6 week doron with repeat imaging to assess for resolution of the abscess. She had dropping hemoglobins while at [facility] and they did do a repeat CT abdomen pelvis. This subsequently showed a perinephric hematoma. She had consultation with Urology in a did not recommend surgical intervention. She was given transfusion of packed red blood cells and given benefit here. Her discharge hemoglobin was 8.6. In clinic today it was 11.1. Her discharge creatinine was 1.02 from [facility]. Today it appeared to be 0.8 in clinic prior to her CT scan. She went to clinic today as she was not feeling well. She had been coughing for 3 days, possible COVID exposure. COVID testing is pending at clinic but he believes there is is not a rapid. Reviewed with Dolores that we will repeated here. She states she maybe had a fever a week ago, nothing recent. Urinalysis in clinic today showed no protein, no glucose, no ketones, no bilirubin, moderate occult blood, small leukocyte esterase, negative nitrate. Microscopy showed 0-2 red blood cells, 3-5 white blood cells, few bacteria, few epithelial cells, mucus present urine culture pending in review of other recent labs, hemoglobin A1c was 6.1% on December 11, C reactive protein 2.82, sed rate 39 on the same day. Potassium was 4.9 in clinic today chest x-ray done in clinic today with radiology report showing no evidence of active pulmonary disease. The apices are not well evaluated as they are obscured by the patient's head. We are waiting for her CT to be read by the radiologist in clinic. Note swelling Gr her Ativan and Flexeril were stopped as she was noted to have confusion during the hospitalization in these medicines were thought maybe contribute. I do not cm on the medication list sent from clinic today vitals on arrival to clinic today blood pressure 118/88, pulse 95, temperature 97.8? F, respiratory rate 16, 97% on room air. She states she is just not feeling well right now but cannot really expand upon that. She is having ongoing right flank pain but states that is not worse than what it was. I do note that this was documented during her hospitalization. Per review of her primaries note from clinic today, she was also complaining of congestion runny nose, sore throat muscle aches with symptom onset . She has completed her 5th COVID vaccine 2 days ago. She is known to have COPD as well. Related Data Home Medications Medication Instructions Recorded Confirmed acetaminophen 500 mg tablet 1,000 mg PO BID 11/22/21 12/28/21 aspirin 81 mg tablet,delayed 81 mg PO DAILY 11/22/21 11/24/21 release atorvastatin 20 mg tablet 20 mg PO HS 11/22/21 12/28/21 cetirizine 10 mg tablet 10 mg PO DAILY 11/22/21 12/28/21 clonazepam 1 mg tablet 1 mg PO HS 11/22/21 12/28/21 fluoxetine 20 mg capsule 20 mg PO DAILY 11/22/21 12/28/21 gabapentin 100 mg capsule 100 mg PO TID 11/22/21 12/28/21 gemfibrozil 600 mg tablet 600 mg PO BIDWM 11/22/21 12/28/21 ibuprofen 400 mg tablet 400 mg PO TIDWM 11/22/21 12/28/21 insulin aspart U-100 100 unit/mL 10 - 35 unit subcut TID 11/22/21 12/28/21 (3 mL) subcutaneous pen (Novolog Flexpen U-100 Insulin aspart) insulin detemir U-100 100 unit/mL 20 - 60 unit subcut HS 11/22/21 12/28/21 (3 mL) subcutaneous pen (Levemir FlexTouch U-100 Insulin) levothyroxine 88 mcg tablet 88 mcg PO DAILY 11/22/21 12/28/21 lithium carbonate 450 mg 450 mg PO DAILY@12 11/22/21 12/28/21 tablet,extended release sumatriptan succinate 50 mg tablet 50 mg PO Q2H PRN 11/22/21 12/28/21 valacyclovir 1 gram tablet 1,000 mg PO DAILY PRN 11/22/21 12/28/21 albuterol sulfate 90 mcg/actuation 2 inh inhalation QID PRN 11/24/21 12/28/21 aerosol inhaler (Ventolin HFA) aluminum-mag hydroxide-simethicone 5 - 10 ml PO BID PRN 11/24/21 12/28/21 200 mg-200 mg-20 mg/5 mL oral susp (Advanced Antacid-Antigas) ammonium lactate 12 % topical cream 1 applic topical BID PRN 11/24/21 12/28/21 benzonatate 100 mg capsule 100 mg PO TID PRN 11/24/21 12/28/21 calcium carbonate 200 mg calcium 400 mg PO QID PRN 11/24/21 12/28/21 (500 mg) chewable tablet (Antacid (calcium carbonate)) clotrimazole 1 % topical cream 1 applic topical BID PRN 11/24/21 11/24/21 (Antifungal Ringworm) cyanocobalamin (vitamin B-12) 1,000 mcg PO DAILY 11/24/21 11/24/21 1,000 mcg tablet (Vitamin B-12) cyclobenzaprine 5 mg tablet 5 mg PO HS PRN 11/24/21 12/28/21 diphenhydramine HCl 25 mg capsule 25 mg PO Q4H PRN 11/24/21 12/28/21 (Aler-Cap) guaifenesin 100 mg/5 mL oral 100 mg PO Q4H PRN 11/24/21 12/28/21 liquid (Chest Congestion Relief) ipratropium 0.5 mg-albuterol 3 mg 3 ml inhalation Q6H PRN 11/24/21 12/28/21 (2.5 mg base)/3 mL nebulization soln loperamide 2 mg capsule 2 mg PO Q6H PRN 11/24/21 12/28/21 (Anti-Diarrheal (loperamide)) lorazepam 0.5 mg tablet 0.5 mg PO DAILY PRN 11/24/21 12/28/21 magnesium hydroxide 400 mg/5 mL 15 - 30 ml PO HS PRN 11/24/21 12/28/21 oral suspension (Milk of Magnesia) menthol 5.8 mg lozenges (Cough 5.8 mg mucous membrane Q1-2H PRN 11/24/21 12/28/21 Drops) ondansetron 4 mg oral soluble film 4 mg PO Q8H PRN 11/24/21 12/28/21 Allergies Allergy/AdvReac Type Severity Reaction Status Date / Time celery Allergy Severe Anaphylaxis Verified 12/28/21 14:12 erythromycin base Allergy Unknown Verified 12/28/21 14:12 hydromorphone [From Dilaudid] Allergy Unknown Verified 12/28/21 14:12 Macrolide Antibiotics Allergy Unknown Verified 12/28/21 14:12 nifedipine Allergy Unknown Verified 12/28/21 14:12 turkey Allergy Unknown Verified 12/28/21 14:12 Review of Systems Status of ROS: Reports: 10 or more systems reviewed and unremarkable except as noted in History and below [facility] Medical History Acute kidney injury Anxiety Asbestosis Asthma Cholelithiasis Elevated liver transaminase level Hx of fracture of humerus Hyperlipidemia Hypertension Hypothyroidism Insomnia Migraine Obesity Pleural plaque due to asbestos exposure Schizoaffective disorder Seasonal allergies Type 2 diabetes mellitus Surgical History H/O hysterectomy with oophorectomy Social History Highest level of school completed/degree received: some college, no degree Smoking Status: Current every day smoker What tobacco products do you use: cigarettes Smoking packs per day: 1.5 Smoking cigarettes per day: 30.0 Years smoked: 8 Smoking pack-years: 12.00 Do you use any of these nicotine containing products: None Second hand tobacco smoke exposure: Yes How often do you have a drink containing alcohol: 2-3 times a week AUDIT-C Alcohol total score: 3 Non-prescribed substance use: denies use Caffeine: Yes service: No Exam Const: Vital Signs, click to edit/add: Vital Signs - 24 hr 12/28/21 14:06 12/28/21 14:46 12/28/21 14:51 Temperature 96.8 F L Pulse Rate 100 102 H Pulse Rate [Right Pulse Oximeter] 102 H Respiratory Rate 18 Blood Pressure [Ri ght Upper Arm] 95/56 L Pulse Oximetry 97 97 98 Oxygen Delivery Me thod Room Air 12/28/21 15:00 12/28/21 15:06 12/28/21 15:15 Temperature Pulse Rate 93 97 95 Pulse Rate [Right Pulse Oximeter] Respiratory Rate Blood Pressure [Ri ght Upper Arm] Pulse Oximetry 98 99 97 Oxygen Delivery Me thod 12/28/21 15:30 12/28/21 15:34 12/28/21 15:45 Temperature Pulse Rate 92 93 90 Pulse Rate [Right Pulse Oximeter] Respiratory Rate Blood Pressure [Ri ght Upper Arm] Pulse Oximetry 97 97 95 Oxygen Delivery Me thod Documenting provider has reviewed patient's vital signs: yes Common normals: no apparent distress, oriented x3 and no limitations (Seems sleepy but is certainly able to carry on conversation) General appearance: cooperative, comfortable and ill appearing Nutritional appearance: overweight HENMT: Common normals: normocephalic, head/scalp atraumatic, hearing grossly normal bilaterally, external ears normal, external nose normal and nasal mucous membranes and turbinates normal Head and scalp: normocephalic and atraumatic Nose: external nose normal and nasal mucous membranes and turbinates normal External ear: external ears normal Other: Oral mucosa with dry mucous membranes. No lesions noted. Speech is normal. Eye: Common normals: PERRL, EOMs intact bilaterally, conjunctivae normal and no scleral icterus Conjunctiva: conjunctiva(e) normal Pupil: PERRL Neck & C-Spine: Common normals: full ROM, no lymphadenopathy, supple, no meningeal signs, no JVD and thyroid normal Thyroid: thyroid normal Resp: Common normals: normal respiratory effort, no retractions, no use of accessory muscles and clear to auscultation bilaterally Auscultation: clear to auscultation bilaterally Cardio: Common normals: no JVD, regular rate, regular rhythm, S1 normal heart sound, S2 normal heart sound, no gallops, no clicks, no murmurs and no rub Rate: regular rate Rhythm: regular rhythm Heart sounds: S1 normal and S2 normal GI: Common normals: Normal to inspection, nondistended, normoactive bowel sounds present, soft to palpation, non-tender, no hepatosplenomegaly and no masses Palpation: soft and no hepatosplenomegaly : Common normals: no CVA tenderness Bladder/kidney exam: no CVA tenderness Back & Pelvis: Common normals: no CVA tenderness, thoracic and lumbar spine normal to inspection and no thoracic nor lumbar tenderness Extremity: Common normals: no calf tenderness and no pedal edema Neuro: Common normals: oriented x3 and moves all extremities Meningeal signs: no meningeal signs Course Course Hospital Course: We will give her a L of IV fluids. Have looked at her old blood pressures in hers is mildly low. Urine studies were done in clinic today, will get comprehensive metabolic panel, I am not repeating her CBC as I have the results from clinic. Will get 2 blood cultures. Will be doing a troponin. We will test for COVID, influenza, RSV are rapid test. We are waiting her CT to be read in clinic. Reevaluation(s) Reevaluation #1: Reviewed with patient that her CT has been faxed status. There is decreased size of the right perinephric hematoma with decreased right perinephric stranding. Underlying mass within the mid right kidney cortex is suspected measuring 5.3 cm. Ruptured malignancy should be considered. No hydronephrosis. Her labs are stable here, hemoglobin 11.1 at clinic today. Given this is stabilized, there are no beds and advanced level facility whether serology, at this time this can be further monitored outpatient and worked up further outpatient. She states she does not have a urology appointment that she will need to get referred through her clinic. Time: 16:26 Consultations Consultation #1: Spoke with Dr. Wilson in urology, does recommend outpatient follow up in urology. Time: 17:11 Vital Signs Vital signs: Initial Vital Signs Temperature 96.8 F L 12/28/21 14:06 Temperature Source Temporal Artery Scan 12/28/21 14:06 Pulse Rate 102 H 12/28/21 14:06 Respiratory Rate 18 12/28/21 14:06 Blood Pressure 95/56 L 12/28/21 14:06 Blood Pressure Mean 69 12/28/21 14:06 Blood Pressure Position Sitting 12/28/21 14:06 Pulse Oximetry 97 12/28/21 14:06 Oxygen Delivery Method 12/28/21 14:06 Vital Signs Temperature 96.8 F L 12/28/21 14:06 Pulse Rate 102 H 12/28/21 14:06 Respiratory Rate 18 12/28/21 14:06 Blood Pressure 95/56 L 12/28/21 14:06 Pulse Oximetry 97 12/28/21 14:06 Oxygen Delivery Method 12/28/21 14:06 Temperature 96.8 F L 12/28/21 14:06 Pulse Rate 90 12/28/21 15:45 Respiratory Rate 18 12/28/21 14:06 Blood Pressure 95/56 L 12/28/21 14:06 Pulse Oximetry 95 12/28/21 15:45 Oxygen Delivery Method 12/28/21 14:06 Medical Decision Making Lab Data Lab results reviewed: Yes I reviewed the patient's lab results Labs: Lab Results 12/28/21 12/28/21 12/28/21 Range/Units 14:36 15:17 15:17 Sodium 136 (135-149) mmol/L Potassium 4.9 (3.6-5.1) mmol/L Chloride 106 (96-114) mmol/L Carbon Dioxide 22 (20-32) mmol/L BUN 16 (7-30) mg/dL Creatinine 0.7 (0.5-1.5) mg/dL Estimated Creat Clear 77.77 Estimated GFR 104 ml/min Glucose 245 H (60-115) mg/dL Lactate 1.4 (0.5-1.9) mmol/L Calcium 9.6 (8.4-10.6) mg/dL Total Bilirubin 1.0 (0.1-1.5) mg/dL AST 30 (12-35) U/L ALT 14 (4-35) U/L Alkaline Phosphatase 151 H (40-150) U/L Troponin I (0.01-0.04) ng/mL C-Reactive Protein 1.4 H (0.5-1.0) mg/dL Total Protein 7.7 (6.0-8.3) g/dL Albumin 4.4 (3.3-5.0) g/dL SARS-CoV-2 (PCR) Negative SARS-CoV-2 (Negative) Influenza Type A (PCR) Negative PCR FLU A (Negative) Influenza Type B (PCR) Negative PCR FLU B (Negative) RSV (PCR) Negative PCR RSV (Negative) 12/28/21 Range/Units 15:17 Sodium (135-149) mmol/L Potassium (3.6-5.1) mmol/L Chloride (96-114) mmol/L Carbon Dioxide (20-32) mmol/L BUN (7-30) mg/dL Creatinine (0.5-1.5) mg/dL Estimated Creat Clear Estimated GFR ml/min Glucose (60-115) mg/dL Lactate (0.5-1.9) mmol/L Calcium (8.4-10.6) mg/dL Total Bilirubin (0.1-1.5) mg/dL AST (12-35) U/L ALT (4-35) U/L Alkaline Phosphatase (40-150) U/L Troponin I < 0.01 L (0.01-0.04) ng/mL C-Reactive Protein (0.5-1.0) mg/dL Total Protein (6.0-8.3) g/dL Albumin (3.3-5.0) g/dL SARS-CoV-2 (PCR) (Negative) Influenza Type A (PCR) (Negative) Influenza Type B (PCR) (Negative) RSV (PCR) (Negative) ECG Data Attestation: I personally reviewed and interpreted this ECG as follows: (Sinus rhythm, 99 beats per minute. No acute ischemic change noted but is low voltage.) Prior ECG tracings: not available for review Critical Care Time Critical Care Time Critical Care Time: No Discharge Plan Discharge Clinical Impression: Mass of right kidney, Pyelonephritis, Upper respiratory infection, viral, Abscess of right kidney Condition: Stable Instructions: Upper Respiratory Infection (ED), Kidney Infection (ED) Additional Instructions: Need to complete oral antibiotics as previously prescribed from Gr. Can continue on Tylenol for your right back pain which I think is stemming from the right kidney issues. You need to be referred to Urology for further evaluation of this right kidney, there certainly appears like there may be a mass within the kidney. You still need to follow-up with the Infectious Disease doctor as well. Four year cold, symptomatic treatment. Antibiotics are not recommended in you actually are on a good broad-spectrum antibiotic that would cover many respiratory bacterial causes. At this time it appears to just have a ?cold?. If you are having progressive respiratory symptoms, failure or worsening, have difficulty breathing or shortness of breath, please seek re-evaluation. Do recommend follow up in clinic within the next 3-5 days for ongoing management of your complex issues. Activity Level: Activity as Tolerated Prescriptions: No Action atorvastatin 20 mg tablet 20 mg PO HS cetirizine 10 mg tablet 10 mg PO DAILY valacyclovir 1 gram tablet 1,000 mg PO DAILY PRN clonazepam 1 mg tablet 1 mg PO HS sumatriptan succinate 50 mg tablet 50 mg PO Q2H PRN aspirin 81 mg tablet,delayed release (DR/EC) 81 mg PO DAILY acetaminophen 500 mg tablet 1,000 mg PO BID Rx Instructions: AND NEEDED 3XD NEEDED lithium carbonate 450 mg tablet extended release 450 mg PO DAILY@12 levothyroxine 88 mcg tablet 88 mcg PO DAILY gemfibrozil 600 mg tablet 600 mg PO BIDWM ibuprofen 400 mg tablet 400 mg PO TIDWM gabapentin 100 mg capsule 100 mg PO TID fluoxetine 20 mg capsule 20 mg PO DAILY insulin aspart U-100 [Novolog Flexpen U-100 Insulin] 100 unit/mL (3 mL) insulin pen 10 - 35 unit SUBCUT TID Rx Instructions: IF BS GREATER THAN 200 GIVE 15 UNITS IF BS GREATER THAN 240 GIVE 20 UNITS IF BS GREATER THAN 300 GIVE 25 UNITS IF BS GREATER THAN 360 GIVE 30 UNITS IF BS GREATER THAN 400 GIVE 35 UNITS Levemir FlexTouch U-100 Insuln 100 unit/mL (3 mL) insulin pen 20 - 60 unit SUBCUT HS Rx Instructions: BS GREATER THAN 200 GIVE 30 UNITS BS GREATER TAHN 300 GIVE 60 UNITS cyanocobalamin (vitamin B-12) [Vitamin B-12] 1,000 mcg tablet 1,000 mcg PO DAILY albuterol sulfate [Ventolin HFA] 90 mcg/actuation HFA aerosol inhaler 2 inh inhalation QID PRN ammonium lactate 12 % cream 1 applic topical BID PRN diphenhydramine HCl [Aler-Cap] 25 mg capsule 25 mg PO Q4H PRN benzonatate 100 mg capsule 100 mg PO TID PRN clotrimazole [Antifungal Ringworm] 1 % cream 1 applic topical BID PRN cyclobenzaprine 5 mg tablet 5 mg PO HS PRN Cough Drops 5.8 mg lozenge 5.8 mg mucous membrane Q1-2H PRN loperamide [Anti-Diarrheal (loperamide)] 2 mg capsule 2 mg PO Q6H PRN ipratropium-albuterol 0.5 mg-3 mg(2.5 mg base)/3 mL solution for nebulization 3 ml inhalation Q6H PRN lorazepam 0.5 mg tablet 0.5 mg PO DAILY PRN alum-mag hydroxide-simeth [Advanced Antacid-Antigas] 200-200-20 mg/5 mL suspension 5 - 10 ml PO BID PRN Rx Instructions: administer between meals and at bedtime magnesium hydroxide [Milk of Magnesia] 400 mg/5 mL suspension 15 - 30 ml PO HS PRN ondansetron 4 mg film 4 mg PO Q8H PRN guaifenesin [Chest Congestion Relief] 100 mg/5 mL liquid 100 mg PO Q4H PRN calcium carbonate [Antacid (calcium carbonate)] 200 mg calcium (500 mg) tablet,chewable 400 mg PO QID PRN Follow Up/Referrals: Andrea Abbott MD [Primary Care Provider] - Stand Alone Forms: [facility] Info Inst[facility]
[2021-12-28] MEDS: 0.9 % SODIUM CHLORIDE 1000 ml 1,000 ML 500 ML IV (14:45)
[2021-12-28 15:17] LABS: PCR FLU A Negative PCR FLU A (Negative); PCR FLU B Negative PCR FLU B (Negative); PCR RSV Negative PCR RSV (Negative)
[2021-12-28 15:21] LABS: SARS PCR* Negative SARS-CoV-2 (Negative)
[2021-12-28 15:25] LABS: Lactate* 1.4 mmol/L (0.5-1.9)
[2021-12-28 15:42] LABS: Albumin* 4.4 g/dL (3.3-5.0); Chloride* 106 mmol/L (96-114)
[2021-12-28 15:43] LABS: Potassium* 4.9 mmol/L (3.6-5.1); Sodium* 136 mmol/L (135-149)
[2021-12-28 15:45] LABS: Creatinine* 0.7 mg/dL (0.5-1.5); Est. Creatinine Clearance* 77.77; Estimated Glomerular Filt Rate 104 ml/min
[2021-12-28 15:46] LABS: Alanine Aminotransferase* 14 U/L (4-35); Alkaline Phosphatase* 151 U/L (40-150); Aspartate Amino Transferase* 30 U/L (12-35); Blood Urea Nitrogen* 16 mg/dL (7-30); Calcium* 9.6 mg/dL (8.4-10.6); Carbon Dioxide* 22 mmol/L (20-32); Glucose* 245 mg/dL (60-115); Total Protein* 7.7 g/dL (6.0-8.3)
[2021-12-28 15:49] LABS: C Reactive Protein* 1.4 mg/dL (0.5-1.0)
[2021-12-28 15:58] LABS: Troponin I* < 0.01 ng/mL (0.01-0.04)
== END 2021-12-28 16:42 | disposition home or self-care (01) ==
PROVIDERS: Emergency Provider Family Medicine; PCP Family Medicine
DX: N28.89 Other specified disorders of kidney and ureter (principal); N12 Tubulo-interstitial nephritis, not specified as acute or chronic; J06.9 Acute upper respiratory infection, unspecified; N15.1 Renal and perinephric abscess
CPT/HCPCS: 36415; 80053; 83605; 84484; 86140; 87040; 87502; 87634; 87635; 93005; 94761; 96360; 99284; J7030

== ENCOUNTER 2022-02-22 08:52 | Outpatient (CLI) | payer MEDICARE, MEDICAID, SELFPAY ==
--- NOTE | 2022-02-22 09:15 | CRLHL7_ITS ---
For Patients: As a result of the Century Cures Act, medical imaging exams and procedure reports are released immediately into your electronic medical record. You may view this report before your referring provider. If you have questions, please contact your health care provider. Indication: Renal mass, prior renal hemorrhage, prior renal abscess Technique: MRI of the abdomen with and without contrast, 15 cc DOTAREM Comparison: CT dated November 24, 2021 Findings: No fat or iron deposition within the liver. The liver appears enlarged. No suspicious hepatic lesions. Hepatic and portal veins appear patent. Probable cholelithiasis. No biliary dilatation. Spleen is enlarged. The adrenal glands, pancreas, stomach and duodenum are unremarkable. Numerous tiny T2 hyperintense renal cysts. Redemonstrated right-sided perinephric hematoma (series 14, image 45) as evidenced by extensive intrinsic T1 and low peripheral T2 signal. No definite underlying mass. Bowel is unremarkable. No significant free fluid. No significant osseous or body wall abnormality. Impression: Redemonstrated right-sided perinephric hematoma without evidence of suspicious underlying mass. Dictated by Octavio Marie MD @ 02/25/2022 6:58:48 PM (Electronically Signed)
== END 2022-02-22 08:53 | disposition home or self-care (01) ==
LOC: MRI 08:53
PROVIDERS: PCP Family Medicine; Visit Provider Urology
DX: N28.89 Other specified disorders of kidney and ureter (principal); R16.1 Splenomegaly, not elsewhere classified; N28.1 Cyst of kidney, acquired
CPT/HCPCS: 74183; A9575

== ENCOUNTER 2022-07-18 06:49 | Outpatient (CLI) | payer MEDICARE, MEDICAID, SELFPAY ==
--- NOTE | 2022-07-18 07:15 | CRLHL7_ITS ---
For Patients: As a result of the Cures Act, medical imaging exams and procedure reports are released immediately into your electronic medical record. You may view this report before your referring provider. If you have questions, please contact your health care provider. INDICATION: Right renal mass. COMPARISON: CT abdomen and pelvis November 24, 2021; ultrasound examination of the abdomen November 25, 2021; MRI of the abdomen without and with intravenous contrast February 22, 2022. TECHNIQUE: Precontrast T1 and T2 weighted imaging; T2 haste imaging; diffusion weighted imaging; in and out of phase imaging; postcontrast imaging; 15 cc of Dotarem contrast was injected. FINDINGS: Resolution of the subcapsular hematoma involving the right kidney when compared to the previous study. A 1.5 cm hemorrhagic/complicated cyst lower pole right kidney; stable in appearance. Small cysts identified involving both kidneys without any interval change. No enhancing mass lesions identified in the kidneys on either side. No focal hepatic pathology. Splenomegaly with the spleen measuring 16 cm in the maximum vertical dimension without any interval change. No pancreatic pathology. No evidence of pancreatic ductal dilatation. Cholelithiasis. No adrenal pathology. No retroperitoneal lymphadenopathy. IMPRESSION: 1. Resolution of the subcapsular hematoma involving the right kidney when compared to February 22, 2022. 2. 1.5 cm hemorrhagic/complicated cyst lower pole right kidney; stable. 3. Multiple small cysts of varying sizes throughout both kidneys. 4. Splenomegaly with the spleen measuring 16 cm in maximum vertical dimension without any interval change. 5. Cholelithiasis. 6. Continued followup of the kidneys suggested to rule out the cause for the previous hemorrhage. Dictated by Rikki Baldwin MD @ 07/19/2022 8:10:18 AM (Electronically Signed)
== END 2022-07-18 06:50 | disposition home or self-care (01) ==
LOC: MRI 06:52
PROVIDERS: PCP Urology; Visit Provider Nurse Practitioner Women's Health
DX: N28.89 Other specified disorders of kidney and ureter (principal); R16.1 Splenomegaly, not elsewhere classified; K80.20 Calculus of gallbladder without cholecystitis without obstruction
CPT/HCPCS: 74183; A9575

== ENCOUNTER 2022-12-30 17:59 | Emergency (ER) | payer MEDICARE, MEDICAID, SELFPAY ==
[2022-12-30 18:07] VITALS: BP 138/99; PULSE 101; RESP 16; TEMP 36.8; O2SAT 96
--- NOTE | 2022-12-30 19:01 | CRLHL7_ITS ---
For Patients: As a result of the Century Cures Act, medical imaging exams and procedure reports are released immediately into your electronic medical record. You may view this report before your referring provider. If you have questions, please contact your health care provider. INDICATION: Cough TECHNIQUE: Two view chest. FINDINGS: The lungs are clear. The heart, mediastinum and pulmonary vessels are of normal size. There is no evidence of pleural disease. Overlying tiny rounded densities overlying the upper chest. Postsurgical changes left humerus. IMPRESSION: Negative chest. Dictated by Pinky Armas MD @ 12/30/2022 8:29:34 PM (Electronically Signed)
--- NOTE | 2022-12-30 19:05 | ED_ITS ---
HPI - General Adult General Date Seen: 12/30/22 Chief complaint: Unspecified Complaint, Adult Stated complaint: Patricia carter 568 17:51 Time Seen by Provider: 12/30/22 18:54 Source: patient Mode of arrival: ambulatory Limitations: no limitations History of Present Illness HPI narrative: Patient is a 52-year-old here for evaluation of elevated blood sugars today. She notes that she has had a little bit of a cold lately, little bit of a cough. COVID has been negative. No fevers reported. No abdominal pain, nausea, vomiting. No shortness of breath or chest pain. Her blood sugar was in the upper 500s earlier today at her facility, she was given sliding scale insulin but after dinner it remained elevated above 550. She was sent in for evaluation as a result. She does take insulin both long-acting and regular for baseline blood sugar control. Related Data Home Medications Medication Instructions Recorded Confirmed acetaminophen 500 mg tablet 1,000 mg PO BID 11/22/21 12/28/21 aspirin 81 mg tablet,delayed 81 mg PO DAILY 11/22/21 11/24/21 release atorvastatin 20 mg tablet 20 mg PO HS 11/22/21 12/28/21 cetirizine 10 mg tablet 10 mg PO DAILY 11/22/21 12/28/21 clonazepam 1 mg tablet 1 mg PO HS 11/22/21 12/28/21 fluoxetine 20 mg capsule 20 mg PO DAILY 11/22/21 12/28/21 gabapentin 100 mg capsule 100 mg PO TID 11/22/21 12/28/21 gemfibrozil 600 mg tablet 600 mg PO BIDWM 11/22/21 12/28/21 ibuprofen 400 mg tablet 400 mg PO TIDWM 11/22/21 12/28/21 insulin aspart U-100 100 unit/mL 10 - 35 unit subcut TID 11/22/21 12/28/21 (3 mL) subcutaneous pen (Novolog FlexPen U-100 Insulin aspart) insulin detemir U-100 100 unit/mL 20 - 60 unit subcut HS 11/22/21 12/28/21 (3 mL) subcutaneous pen (Levemir FlexTouch U-100 Insulin) levothyroxine 88 mcg tablet 88 mcg PO DAILY 11/22/21 12/28/21 lithium carbonate 450 mg 450 mg PO DAILY@12 11/22/21 12/28/21 tablet,extended release sumatriptan succinate 50 mg tablet 50 mg PO Q2H PRN 11/22/21 12/28/21 valacyclovir 1 gram tablet 1,000 mg PO DAILY PRN 11/22/21 12/28/21 albuterol sulfate 90 mcg/actuation 2 inh inhalation QID PRN 11/24/21 12/28/21 aerosol inhaler (Ventolin HFA) aluminum-mag hydroxide-simethicone 5 - 10 ml PO BID PRN 11/24/21 12/28/21 200 mg-200 mg-20 mg/5 mL oral susp (Advanced Antacid-Antigas) ammonium lactate 12 % topical cream 1 applic topical BID PRN 11/24/21 12/28/21 benzonatate 100 mg capsule 100 mg PO TID PRN 11/24/21 12/28/21 calcium carbonate 200 mg calcium 400 mg PO QID PRN 11/24/21 12/28/21 (500 mg) chewable tablet (Antacid (calcium carbonate)) clotrimazole 1 % topical cream 1 applic topical BID PRN 11/24/21 11/24/21 (Antifungal Ringworm) cyanocobalamin (vitamin B-12) 1,000 mcg PO DAILY 11/24/21 11/24/21 1,000 mcg tablet (Vitamin B-12) cyclobenzaprine 5 mg tablet 5 mg PO HS PRN 11/24/21 12/28/21 diphenhydramine HCl 25 mg capsule 25 mg PO Q4H PRN 11/24/21 12/28/21 (Aler-Cap) guaifenesin 100 mg/5 mL oral 100 mg PO Q4H PRN 11/24/21 12/28/21 liquid (Chest Congestion Relief) ipratropium 0.5 mg-albuterol 3 mg 3 ml inhalation Q6H PRN 11/24/21 12/28/21 (2.5 mg base)/3 mL nebulization soln loperamide 2 mg capsule 2 mg PO Q6H PRN 11/24/21 12/28/21 (Anti-Diarrheal (loperamide)) lorazepam 0.5 mg tablet 0.5 mg PO DAILY PRN 11/24/21 12/28/21 magnesium hydroxide 400 mg/5 mL 15 - 30 ml PO HS PRN 11/24/21 12/28/21 oral suspension (Milk of Magnesia) menthol 5.8 mg lozenges (Cough 5.8 mg mucous membrane Q1-2H PRN 11/24/21 12/28/21 Drops) ondansetron 4 mg oral soluble film 4 mg PO Q8H PRN 11/24/21 12/28/21 Previous Rx's Medication Instructions Recorded meclizine 25 mg tablet 25 mg PO BID PRN vertigo #10 tabs 08/16/22 Allergies Allergy/AdvReac Type Severity Reaction Status Date / Time celery Allergy Severe Anaphylaxis Verified 12/28/21 14:12 erythromycin base Allergy Unknown Verified 12/28/21 14:12 hydromorphone [From Dilaudid] Allergy Unknown Verified 12/28/21 14:12 Macrolide Antibiotics Allergy Unknown Verified 12/28/21 14:12 nifedipine Allergy Unknown Verified 12/28/21 14:12 turkey Allergy Unknown Verified 12/28/21 14:12 Review of Systems Status of ROS: Reports: 10 or more systems reviewed and unremarkable except as noted in History and below [facility] Medical History Hx of fracture of humerus ?Z87.81 - Personal history of (healed) traumatic fracture (ICD-10) Schizoaffective disorder ?F25.9 - Schizoaffective disorder, unspecified (ICD-10) Asthma ?J45.909 - Unspecified asthma, uncomplicated (ICD-10) Pleural plaque due to asbestos exposure ?J92.0 - Pleural plaque with presence of asbestos (ICD-10) Asbestosis ?J61 - Pneumoconiosis due to asbestos and other mineral fibers (ICD-10) Anxiety ?F41.9 - Anxiety disorder, unspecified (ICD-10) Insomnia ?G47.00 - Insomnia, unspecified (ICD-10) Type 2 diabetes mellitus ?E11.9 - Type 2 diabetes mellitus without complications (ICD-10) Cholelithiasis ?K80.20 - Calculus of gallbladder without cholecystitis without obstruction ( ICD-10) Seasonal allergies ?J30.2 - Other seasonal allergic rhinitis (ICD-10) Elevated liver transaminase level ?R74.01 - Elevation of levels of liver transaminase levels (ICD-10) Obesity ?E66.9 - Obesity, unspecified (ICD-10) Hypertension ?I10 - Essential (primary) hypertension (ICD-10) Hypothyroidism ?E03.9 - Hypothyroidism, unspecified (ICD-10) Migraine ?G43.909 - Migraine, unspecified, not intractable, without status migrainosus (ICD-10) Hyperlipidemia ?E78.5 - Hyperlipidemia, unspecified (ICD-10) Acute kidney injury ?N17.9 - Acute kidney failure, unspecified (ICD-10) Surgical History H/O hysterectomy with oophorectomy Social History Highest level of school completed/degree received: some college, no degree Smoking Status: Current every day smoker What tobacco products do you use: cigarettes Smoking packs per day: 1.5 Smoking cigarettes per day: 30.0 Years smoked: 8 Smoking pack-years: 12.00 Do you use any of these nicotine containing products: None Second hand tobacco smoke exposure: Yes How often do you have a drink containing alcohol: never AUDIT-C Alcohol total score: 0 Non-prescribed substance use: denies use Caffeine: Yes service: No Exam Narrative: Exam Narrative: Vital signs as noted above. In general, an alert, nontoxic woman. Breathing easily. Head: Normocephalic, atraumatic. Eyes: Pupils are equal reactive. Extraocular movements are full. Conjunctivae are normal. ENT: Mucous membranes are moist. Throat is normal. Neck: Supple without lymphadenopathy. Heart: Regular rate and rhythm. No murmur or rub. Lungs: She has a few coarse rales noted on the left anteriorly, otherwise lungs are clear, no wheezes, no increased work of breathing. Abdomen: Soft and nontender. No organomegaly. Extremities: Well perfused. No edema. No calf tenderness. Pulses intact. Neurologic: Patient is alert and oriented to person and place. Speech is fluent. Face is symmetric. Moves all extremities equally. Affect: Normal. Skin: Warm and dry. Well perfused. Const: Vital Signs, click to edit/add: Vital Signs - 24 hr 12/30/22 18:07 Temperature 98.2 F Pulse Rate [Pulse Oximeter] 101 H Respiratory Rate 16 Blood Pressure [Ri ght Upper Arm] 138/99 H Pulse Oximetry 96 Oxygen Delivery Me thod Room Air Documenting provider has reviewed patient's vital signs: yes Course Course ED Course: Patient had a 1000 mL of normal saline as well as 10 units of subcu insulin. I did look for other causes of hyperglycemia such as infection, she had a chest x- ray which by my review was negative for pneumonia, final radiology read was likewise negative. Her blood gas showed a pH of 7.36, with a normal bicarb. Metabolic panel was notable for an elevated blood sugar of 568 but otherwise was normal. Her lactate was mildly elevated at 2.6. LFTs were normal, CRP was 1.4. A urinalysis was ordered but not done. Patient was eager to go home really from the time she got here. Repeat blood sugar was 390. In the absence of any symptoms and with reassuring labs I think it is reasonable to let her go home, continue her usual sliding scale insulin, and follow-up with primary care if she is continuing to have difficulty with elevated numbers. No evidence of ketoacidosis today. Vital Signs Vital signs: Initial Vital Signs Temperature 98.2 F 12/30/22 18:07 Temperature Source Temporal Artery Scan 12/30/22 18:07 Pulse Rate 101 H 12/30/22 18:07 Respiratory Rate 16 12/30/22 18:07 Blood Pressure 138/99 H 12/30/22 18:07 Blood Pressure Mean 112 H 12/30/22 18:07 Blood Pressure Position Sitting 12/30/22 18:07 Pulse Oximetry 96 12/30/22 18:07 Oxygen Delivery Method Room Air 12/30/22 18:07 Vital Signs Temperature 98.2 F 12/30/22 18:07 Pulse Rate 101 H 12/30/22 18:07 Respiratory Rate 16 12/30/22 18:07 Blood Pressure 138/99 H 12/30/22 18:07 Pulse Oximetry 96 12/30/22 18:07 Oxygen Delivery Method Room Air 12/30/22 18:07 Temperature 98.2 F 12/30/22 18:07 Pulse Rate 101 H 12/30/22 18:07 Respiratory Rate 16 12/30/22 18:07 Blood Pressure 138/99 H 12/30/22 18:07 Pulse Oximetry 96 12/30/22 18:07 Oxygen Delivery Method Room Air 12/30/22 18:07 Medical Decision Making Lab Data Labs: Lab Results 12/30/22 Range/Units 19:15 WBC 4.48 L (4.50-11.00) K/uL RBC 4.10 (4.00-5.20) m/uL Hgb 12.3 (12.0-16.0) gm/dL Hct 36.6 (33.0-51.0) % MCV 89 (80-100) fL MCH 30 (26-34) pg MCHC 34 (32-36) gm/dL RDW Coeff of Norris 12.8 (11.5-15.5) % Plt Count 148 (140-440) K/uL Neut % (Auto) 50.3 (42.0-72.0) % Lymph % (Auto) 39.1 (20-44) % [place] % (Auto) 6.9 (0.0-11.0) % Eos % (Auto) 3.1 (0.0-7.0) % Baso % (Auto) 0.2 (0.0-3.0) % Neut # (Auto) 2.30 (1.7-7.0) K/uL Lymph # (Auto) 1.80 (0.90-2.90) K/uL [place] # (Auto) 0.30 (0.00-0.90) K/UL Eos # (Auto) 0.10 (0.00-0.50) K/uL Baso # (Auto) 0.00 (0.00-0.30) K/uL Abs Immat Gran (auto) 0.00 (0.00-0.30) K/uL Imm/Tot Granulo (auto) 0.4 % VBG pH 7.366 (7.32-7.43) VBG pCO2 43 (40-50) mmHG VBG pO2 50.9 H (25-47) mmHG VBG HCO3 25 (21-28) mmol/L Sodium 134 L (135-149) mmol/L Potassium 4.5 (3.6-5.1) mmol/L Chloride 97 (96-114) mmol/L Carbon Dioxide 23 (20-32) mmol/L Anion Gap 14 (7-15) mEq/L BUN 16 (7-30) mg/dL Creatinine 0.9 (0.5-1.5) mg/dL Estimated GFR 76 ml/min Glucose 568 H* (60-115) mg/dL Lactate 2.6 H (0.5-1.9) mmol/L Calcium 9.3 (8.4-10.6) mg/dL Total Bilirubin 0.7 (0.1-1.5) mg/dL Direct Bilirubin 0.0 (0.0-0.5) mg/dL AST 34 (12-35) U/L ALT 31 (4-35) U/L Alkaline Phosphatase 115 (40-150) U/L C-Reactive Protein 1.4 H (0.5-1.0) mg/dL Total Protein 7.5 (6.0-8.3) g/dL Albumin 4.6 (3.3-5.0) g/dL Discharge Plan Discharge Clinical Impression: Hyperglycemia Patient Disposition: Home, Self-Care Condition: Improved Instructions: Diabetic Hyperglycemia (ED) Additional Instructions: All of your test today looked normal aside from the elevated blood sugar. Would recommend treating this with sliding scale insulin as needed in addition to your regular insulin. Follow-up with your primary doctor if you have continued difficulties with elevated blood sugars. Return to the ER for new symptoms such as fever, vomiting, shortness of breath etcetera. Prescriptions: No Action atorvastatin 20 mg tablet 20 mg PO HS cetirizine 10 mg tablet 10 mg PO DAILY valacyclovir 1 gram tablet 1,000 mg PO DAILY PRN clonazepam 1 mg tablet 1 mg PO HS sumatriptan succinate 50 mg tablet 50 mg PO Q2H PRN aspirin 81 mg tablet,delayed release (DR/EC) 81 mg PO DAILY acetaminophen 500 mg tablet 1,000 mg PO BID Rx Instructions: AND NEEDED 3XD NEEDED lithium carbonate 450 mg tablet extended release 450 mg PO DAILY@12 levothyroxine 88 mcg tablet 88 mcg PO DAILY gemfibrozil 600 mg tablet 600 mg PO BIDWM ibuprofen 400 mg tablet 400 mg PO TIDWM gabapentin 100 mg capsule 100 mg PO TID fluoxetine 20 mg capsule 20 mg PO DAILY insulin aspart U-100 [Novolog FlexPen U-100 Insulin] 100 unit/mL (3 mL) insulin pen 10 - 35 unit SUBCUT TID Rx Instructions: IF BS GREATER THAN 200 GIVE 15 UNITS IF BS GREATER THAN 240 GIVE 20 UNITS IF BS GREATER THAN 300 GIVE 25 UNITS IF BS GREATER THAN 360 GIVE 30 UNITS IF BS GREATER THAN 400 GIVE 35 UNITS Levemir FlexTouch U100 Insulin 100 unit/mL (3 mL) insulin pen 20 - 60 unit SUBCUT HS Rx Instructions: BS GREATER THAN 200 GIVE 30 UNITS BS GREATER TAHN 300 GIVE 60 UNITS cyanocobalamin (vitamin B-12) [Vitamin B-12] 1,000 mcg tablet 1,000 mcg PO DAILY albuterol sulfate [Ventolin HFA] 90 mcg/actuation HFA aerosol inhaler 2 inh inhalation QID PRN ammonium lactate 12 % cream 1 applic topical BID PRN diphenhydramine HCl [Aler-Cap] 25 mg capsule 25 mg PO Q4H PRN benzonatate 100 mg capsule 100 mg PO TID PRN clotrimazole [Antifungal Ringworm] 1 % cream 1 applic topical BID PRN cyclobenzaprine 5 mg tablet 5 mg PO HS PRN Cough Drops 5.8 mg lozenge 5.8 mg mucous membrane Q1-2H PRN loperamide [Anti-Diarrheal (loperamide)] 2 mg capsule 2 mg PO Q6H PRN ipratropium-albuterol 0.5 mg-3 mg(2.5 mg base)/3 mL solution for nebulization 3 ml inhalation Q6H PRN lorazepam 0.5 mg tablet 0.5 mg PO DAILY PRN alum-mag hydroxide-simeth [Advanced Antacid-Antigas] 200-200-20 mg/5 mL suspension 5 - 10 ml PO BID PRN Rx Instructions: administer between meals and at bedtime magnesium hydroxide [Milk of Magnesia] 400 mg/5 mL suspension 15 - 30 ml PO HS PRN ondansetron 4 mg film 4 mg PO Q8H PRN guaifenesin [Chest Congestion Relief] 100 mg/5 mL liquid 100 mg PO Q4H PRN calcium carbonate [Antacid (calcium carbonate)] 200 mg calcium (500 mg) tablet,chewable 400 mg PO QID PRN meclizine 25 mg tablet 25 mg PO BID PRN (Reason: vertigo) Qty: 10 0RF Follow Up/Referrals: Andrea Abbott MD [Referring] - Stand Alone Forms: [facility] Info Instructions Discharge Comment: [place] on their way to warehouse order picker the patient.
[2022-12-30] MEDS: 0.9 % SODIUM CHLORIDE 500 ML 500 ML IV (19:17)
[2022-12-30 19:23] LABS: Basophils Percent Auto 0.2 % (0.0-3.0); Eosinophils Percent Auto 3.1 % (0.0-7.0); HCO3 VBG 25 mmol/L (21-28); Hematocrit 36.6 % (33.0-51.0); Hemoglobin* 12.3 gm/dL (12.0-16.0); Immature Granulocytes Pct Auto 0.4 %; Lymphocytes Percent Auto 39.1 % (20-44); Mean Corpuscular HGB Conc 34 gm/dL (32-36); Mean Corpuscular Hemoglobin 30 pg (26-34); Mean Corpuscular Volume 89 fL (80-100); Monocytes Percent Auto 6.9 % (0.0-11.0); Neutrophils Percent Auto 50.3 % (42.0-72.0); PCO2 VBG 43 mmHG (40-50); PO2 VBG 50.9 mmHG (25-47); Platelet Count* 148 K/uL (140-440); RDW Coefficient of Variation % 12.8 % (11.5-15.5); White Blood Count* 4.48 K/uL (4.50-11.00); pH VBG 7.366 (7.32-7.43)
[2022-12-30 19:24] LABS: Lactate* 2.6 mmol/L (0.5-1.9)
[2022-12-30 19:25] LABS: Slide Review Reflex No
[2022-12-30 19:51] LABS: Albumin* 4.6 g/dL (3.3-5.0)
[2022-12-30 19:52] LABS: Chloride* 97 mmol/L (96-114); Potassium* 4.5 mmol/L (3.6-5.1); Sodium* 134 mmol/L (135-149)
[2022-12-30 19:54] LABS: Alkaline Phosphatase* 115 U/L (40-150); Aspartate Amino Transferase* 34 U/L (12-35); Bilirubin Total* 0.7 mg/dL (0.1-1.5); Total Protein* 7.5 g/dL (6.0-8.3)
[2022-12-30 19:55] LABS: Alanine Aminotransferase* 31 U/L (4-35); Anion Gap 14 mEq/L (7-15); Carbon Dioxide* 23 mmol/L (20-32); Creatinine* 0.9 mg/dL (0.5-1.5); Estimated Glomerular Filt Rate 76 ml/min
[2022-12-30 19:56] LABS: Blood Urea Nitrogen* 16 mg/dL (7-30); Calcium* 9.3 mg/dL (8.4-10.6)
[2022-12-30 19:59] LABS: C Reactive Protein* 1.4 mg/dL (0.5-1.0)
[2022-12-30 20:05] LABS: Glucose* 568 mg/dL (60-115)
--- NOTE | 2022-12-30 21:27 | ED.NURSE ---
Report to Shilpa, on-call [facility].
== END 2022-12-30 21:29 | disposition home or self-care (01) ==
PROVIDERS: Emergency Provider Emergency Medicine; PCP Family Medicine
DX: E11.65 Type 2 diabetes mellitus with hyperglycemia (principal)
CPT/HCPCS: 36415; 71046; 80048; 80076; 81001; 82803; 82962; 83605; 85025; 86140; 99284; J7120

== ENCOUNTER 2023-05-20 10:00 | Outpatient (RCR) | payer MEDICARE, MEDICAID, SELFPAY | END 2023-09-17 23:59 | disposition home or self-care (01) | PROVIDERS: PCP Family Medicine; Visit Provider Family Medicine | DX: M54.50 Low back pain, unspecified (principal); Z51.89 Encounter for other specified aftercare | CPT/HCPCS: 97110; 97140; 97162 ==

== ENCOUNTER 2024-08-13 14:45 | Outpatient (RCR) | payer MEDICARE, MEDICAID, SELFPAY | END 2024-12-11 23:59 | disposition home or self-care (01) | PROVIDERS: PCP Family Medicine; Visit Provider Family Medicine | DX: M54.50 Low back pain, unspecified (principal); G89.29 Other chronic pain; Z51.89 Encounter for other specified aftercare | CPT/HCPCS: 97110; 97140; 97162 ==